=== PATIENT | female | born 1940 | race Caucasian/White ===

== ENCOUNTER 2017-07-24 11:41 | Day surgery (SDC) | payer MEDICARE ==
[2017-07-23 14:45] VITALS: BMI 35.4
--- NOTE | 2017-07-24 16:00 | CT ---
EXAM: ABDOMEN CT WITH CONTRAST PELVIC CT WITH CONTRAST: HISTORY: Abdominal pain. Status post endoscopy. COMPARISON: 06/19/17. TECHNIQUE: Abdomen and pelvic CT are performed with IV contrast. Enteric contrast was not administered. Nam l reformatted images were submitted for interpretation. FINDINGS: ABDOMEN CT: The lung bases are clear. Heart size is within normal limits. No significant pericardial fluid. Stable pneumobilia, presumed to be due to previous surgery at the sphincter of Oddi. Gallbladder is surgically absent. The liver, spleen, pancreas, and adrenal glands have appropriate enhancement. Symmetric enhancement of the kidneys. Bilaterally, no obstructive uropathy. Note is made of a percutaneous LAP band. There is a moderate hiatal hernia. No evidence of bowel ob struction. Evaluation of the alimentary canal is limited by the absence of oral contrast. The ileoc ecal junction is normal. Fecal material in nondistended, nondilated colon. Diverticulosis. No dive rticulitis. No gastrohepatic, retrocrural, or periportal lymphadenopathy. No mesenteric mass, lymphadenopathy, free air, or free fluid. Symmetric attenuation of the psoas muscles. Stable hepatic steatosis. PELVIC CT: Surgically absent uterus. No pelvic mass, lymphadenopathy, free air, or free fluid. There are no lytic or blastic lesions in the osseous structures. IMPRESSION: 1. No evidence of pneumoperitoneum. 2. No evidence of bowel obstruction. 3. Moderate hiatal hernia. Percutaneous gastric LAP band is noted. POS: [facility]
[2017-07-24] MEDS ORDERED: ISOVUE-370 76%-LOCM 1 ML ONE (16:26)
--- NOTE | 2017-07-24 16:43 | OP ---
DATE OF PROCEDURE: 07/24/2017 PROCEDURE: Esophagogastroduodenoscopy. DESCRIPTION OF PROCEDURE: After discussing the potential complications of the esophagogastroduodenoscopy to include risk of bleeding, perforation, infection, reaction to anesthesia and/or discomfort or pain, informed consent was obtained. The patient was then taken to the endoscopy suite and after a timeout was performed, deep sedation was initiated via anesthesia support. The standard gastroscope was then advanced into the esophagus into the stomach into the second portion of the duodenum without difficulty. FINDINGS: Duodenum: Normal mucosa was seen in the duodenal bulb and second portion of the duodenum. There was no evidence of erosions, ulcerations, or mass lesions. Stomach: Normal mucosa was seen in the gastric body, antrum, incisura and pylorus. Two linear erosions were seen extending from the GE junction into the fundus with no overt ulceration or active/recent bleeding seen. This finding was most likely due to passage of the gastroscope/scope trauma, otherwise normal findings throughout the stomach. Retroflexion did not reveal any abnormalities. Esophagus: Normal mucosa was seen in the proximal, mid and distal esophagus. The diaphragmatic pinch was seen at approximately 40 cm past the incisors with the GE junction well seen at approximately 36 cm denoting a 4 cm hiatal hernia. No erosions, ulcerations, or mass lesions were seen. IMPRESSION: 1. A 4 cm hiatal hernia. 2. Two linear erosions were seen in the gastric fundus, most likely the result of scope trauma. 3. The etiology for her abdominal pain was not seen during this examination. RECOMMENDATIONS: 1. Continue with current therapies including pantoprazole b.i.d. 2. Would increase MiraLax 1 capful to twice daily dosing. 3. Continue fiber supplementation with Citrucel b.i.d. 4. Follow up in GI clinic in 4 weeks. 5. Would avoid all NSAIDs. MTDD
[2017-07-24] MEDS ORDERED: Lidocaine 1% PF 5 ML VIAL ONE (18:12)
[2017-07-24] MEDS ORDERED: Propofol 200 MG/20 ML VIAL ONE (18:12)
== END 2017-07-24 16:30 | disposition home or self-care (01) ==
LOC: SDC 11:41
PROVIDERS: ATTEND Internal Medicine
PROC: 0DJ08ZZ Inspection of Upper Intestinal Tract, Via Natural or Artificial Opening Endoscopic (ICD-10-PCS; principal; 2017-07-24)
DX: K44.9 Diaphragmatic hernia without obstruction or gangrene (principal); R10.13 Epigastric pain; E78.5 Hyperlipidemia, unspecified; I11.0 Hypertensive heart disease with heart failure; I50.42 Chronic combined systolic (congestive) and diastolic (congestive) heart failure; J44.9 Chronic obstructive pulmonary disease, unspecified; F41.8 Other specified anxiety disorders; I25.119 Atherosclerotic heart disease of native coronary artery with unspecified angina pectoris; R09.02 Hypoxemia; G47.00 Insomnia, unspecified; I95.1 Orthostatic hypotension; Z79.2 Long term (current) use of antibiotics; Z79.899 Other long term (current) drug therapy; Z88.6 Allergy status to analgesic agent; Z88.5 Allergy status to narcotic agent; Z88.8 Allergy status to other drugs, medicaments and biological substances; Z95.810 Presence of automatic (implantable) cardiac defibrillator; Z90.49 Acquired absence of other specified parts of digestive tract; Z90.710 Acquired absence of both cervix and uterus; Z98.890 Other specified postprocedural states
CPT/HCPCS: 74177; J2001; J2704

== ENCOUNTER 2019-03-24 12:25 | Outpatient (CLI) | payer MEDICARE ==
[~2019-03-24 12:25] MED LIST: Furosemide 40 MG/4 ML VIAL ONE
--- NOTE | 2019-03-24 16:09 | NM ---
NM Renogram HIPN Lasix History: Megaloureter Comparison: CT abdomen and pelvis January 04, 2019 Findings: Exam was performed after intravenous ministration 7.9 mCi technetium 99m MAG3. The split fu nction is 64.5% on the right and 35.5% on the left. The time of one half max is normal bilaterally. No evidence of obstruction. Impression: 1. No evidence of obstructive uropathy. 2. Asymmetric split function of 64.5 % on the right and 35.5 % on the left.
== END 2019-03-24 12:26 | disposition home or self-care (01) ==
LOC: NM 12:25
PROVIDERS: ATTEND Urology
DX: N28.82 Megaloureter (principal)
CPT/HCPCS: 78708; A4641; A9562; J1940

== ENCOUNTER 2019-05-12 08:32 | Outpatient (CLI) | payer MEDICARE ==
--- NOTE | 2019-05-12 14:10 | NM ---
NM Gastric Empty Scan W/Meal History: Nausea with vomiting. Comparison: None. Findings: Planar imaging of the abdomen was obtained after oral administration 1.9 mCi technetium 99m sulfur colloid in egg. There is 19% emptying at 1 hour, 30% emptying at 2 hour, 50% emptying at 3 hour, and 54% emptying at 4 hour. Impression: Delayed gastric emptying.
== END 2019-05-12 08:33 | disposition home or self-care (01) ==
LOC: NM 08:32
PROVIDERS: ATTEND Physician Assistant Medical
DX: R10.11 Right upper quadrant pain (principal); R11.2 Nausea with vomiting, unspecified; R19.4 Change in bowel habit; K30 Functional dyspepsia
CPT/HCPCS: 78264; A9541

== ENCOUNTER 2019-07-13 08:00 | Day surgery (SDC) | payer MEDICARE ==
[2019-07-10 16:13] VITALS: BMI 34.0
[2019-07-13] MEDS ORDERED: Fentanyl 100 MCG/2 ML VIAL ONE (09:53)
[2019-07-13] MEDS ORDERED: Phenylephrine HCL 10 MG/ML VIAL ONE (09:53)
[2019-07-13] MEDS ORDERED: Ondansetron PF 4 MG/2 ML Vial ONE (10:25)
[2019-07-13] MEDS ORDERED: PROPOFOL 200 MG/20 ML VIAL ONE (10:25)
[2019-07-13] MEDS ORDERED: Succinylcholine Chloride 20 MG/ML 10 ml SYRINGE FS ONE (10:25)
[2019-07-13] MEDS ORDERED: PHENYLEPHRINE-NS 100 MCG/ML 10 ML SYRINGE ONE (10:25)
[2019-07-13] MEDS ORDERED: Labetalol HCl 100 MG/20 ML VIAL ONE (10:25)
[2019-07-13] MEDS ORDERED: Lidocaine 1% PF 5 ML VIAL ONE (10:25)
--- NOTE | 2019-07-13 16:10 | OP ---
DATE OF PROCEDURE: 07/13/2019 INDICATIONS FOR PROCEDURE: Nausea, vomiting, and abdominal pain. PROCEDURE PERFORMED: Esophagogastroduodenoscopy with biopsy. DESCRIPTION OF PROCEDURE: After the risks and benefits of the procedure were explained to the patient including risks of bleeding, infection, perforation, reactions to anesthesia, aspiration, and/or pain, informed consent was obtained. The patient was then taken to the endoscopy suite, where general anesthesia was administered with endotracheal tube intubation. Once the patient was sedated and intubated, she was maneuvered into the left lateral decubitus position in preparation for the EGD. Once adequate positioning was obtained, the standard gastroscope was introduced into the mouth with intubation of the esophagus, stomach, and the proximal small intestines with the findings listed below. The patient tolerated the procedure well with no immediate perioperative complications. Upon conclusion of the procedure, the patient was transferred to PACU in satisfactory condition. FINDINGS: Esophagus: Normal-appearing mucosa was seen in the proximal and mid esophagus; however, a 5 mm erosion was seen in the distal esophagus extending up from the gastroesophageal junction consistent with reflux esophagitis. The diaphragmatic pinch was also seen at 45 cm while the gastroesophageal junction was seen at 40 cm denoting a 5 cm hiatal hernia. There were no associated erosions or ulcerations within the hernia sac nor was there any evidence of Puneet ulcers. Otherwise, there was no evidence of ulcerations, mass lesions, or active/recent bleeding. Stomach: Normal-appearing mucosa was seen in the gastric cardia, fundus, and proximal body. However, within the distal body, antrum, and incisura, there was increased mucosal erythema in a diffuse-like pattern without any associated erosions or ulcerations. Biopsies were taken from this region as well as in the proximal stomach for evaluation of possible H pylori and/or histology. A 3 mm white-colored polyp was also seen in the distal gastric body that did not exhibit any increased surrounding erythema or mucosal breakdown. Biopsy was taken of this polyp and completely removed with biopsy forceps. It was placed in a specimen jar for evaluation. Otherwise, a hiatal hernia was seen on gastric retroflexion. There was no evidence of erosions, ulcerations, mass lesions, or active/recent bleeding seen in this portion of the exam. Duodenum: Normal-appearing mucosa was seen in both the duodenal bulb and second portion of the duodenum. There was no evidence of erosions, ulcerations, mass lesions, or active/recent bleeding. IMPRESSION: 1. LA grade A reflux-mediated erosive esophagitis. 2. 5 cm hiatal hernia contributing to #1. 3. Mild diffuse mucosal erythema in the distal stomach concerning for Helicobacter pylori versus inflammatory process. 4. 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 RECOMMENDATIONS: 1. We will follow up on the biopsy results with further management guided by pathology report. 2. Continue the patient on pantoprazole daily for reflux esophagitis. 3. We would continue smaller, more frequent meals throughout the day with liquid meal substitution given evidence of gastroparesis on prior studies that could contribute to nausea and vomiting. 4. We would attempt to minimize any narcotics as it can create constipation and further exacerbate gastroparesis. 5. Antiemetic control as needed with Zofran. Follow up in the GI clinic in 3 weeks for continued evaluation of her chronic nausea and vomiting in light of gastroparesis. Job ID: [id number]
== END 2019-07-13 12:30 | disposition home or self-care (01) ==
LOC: SDC 08:00
PROVIDERS: ATTEND Internal Medicine
PROC: 0DB68ZX Excision of Stomach, Via Natural or Artificial Opening Endoscopic, Diagnostic (ICD-10-PCS; principal; 2019-07-13)
DX: K31.7 Polyp of stomach and duodenum (principal); K31.89 Other diseases of stomach and duodenum; K44.9 Diaphragmatic hernia without obstruction or gangrene; K21.0 Gastro-esophageal reflux disease with esophagitis; K22.10 Ulcer of esophagus without bleeding; Z88.5 Allergy status to narcotic agent; Z88.8 Allergy status to other drugs, medicaments and biological substances
CPT/HCPCS: 88305; 88312; J2001; J2370; J2405; J2704; J3010

== ENCOUNTER 2019-09-08 14:32 | Inpatient (IN) | payer MEDICARE, SELFPAY ==
--- NOTE | 2019-09-08 14:59 | CT ---
CT BRAIN WITHOUT CONTRAST: Date: 10/09/2019 HISTORY: Level I stroke. Aphasia. Bilateral weakness. COMPARISON: 01/10/2019. FINDINGS: Changes of cortical atrophy and chronic small vessel ischemic disease are stable. The ventricular siz e is stable and the basilar cisterns are patent. No evidence of acute infarct, hemorrhage, midline shift, or abnormal extra-axial fluid collections ar e seen. The bony calvarium is intact. There is mild mucosal disease in the paranasal sinuses. IMPRESSION: No CT evidence of acute intracranial process. Discussed over the phone with ER physician, Dr. Cristiano Maldonado, at 1445 hours. CODE CR. POS: OFF
[2019-09-08 15:11] LABS: Hemoglobin 14.7 g/dL (12.0-16.0); Mean Corpuscular HGB CONC 32.9 g/dL (32.0-36.0); Mean Corpuscular Hemoglobin 29.1 pg (27.0-31.0); Mean Corpuscular Volume 88.3 fL (78.0-98.0); Mean Platelet Volume 8.6 fL (7.4-10.4); Platelet Count 319 thou/uL (130-400); RBC Distribution Width 12.8 % (11.5-14.5); Red Blood Cell (RBC) Count 5.05 mill/uL (4.20-5.40); White Blood Cell (WBC) Count 15.4 thou/uL (4.8-10.8)
[2019-09-08 15:14] LABS: INR-International Normal Ratio 1.1; PTT 34.1 SEC (22.9-36.1); Prothrombin Time 13.8 SEC (12.0-14.7)
[2019-09-08 15:22] LABS: Bilirubin Negative (Negative); Blood, Urine Negative (Negative); Clarity Clear (Clear); Glucose, Urine (Dipstick) Normal (Negative); Leukocyte Negative Leu/uL (Negative); Nitrite Negative (Negative); Protein, Urine (Dipstick) 50 mg/dL (Neg-Trace); RBC/HPF 0-3 HPF (0-3); Squamous Epithelial 0-3 HPF (0-3); WBC/HPF 0-3 HPF (0-3)
[2019-09-08 15:24] LABS: ALT (SGPT) 13 U/L (8-55); AST (SGOT) 18 U/L (5-34); Albumin 4.2 g/dL (3.4-4.8); Alkaline Phosphatase 97 U/L (40-110); Anion Gap 17 mmol/L (10-20); BUN (Urea Nitrogen) 21 mg/dL (9.8-20.1); Bilirubin, Total 0.4 mg/dL (0.2-1.2); Calc. Creatinine Clearance 0 mL/min (70-130); Calcium 10.2 mg/dL (7.8-10.44); Carbon Dioxide 28 mmol/L (23-31); Chloride 99 mmol/L (98-107); Estimated GFR-MDRD 60; Globulin 3.2 g/dL (2.4-3.5); Glucose 109 mg/dL (83-110); Potassium 3.5 mmol/L (3.5-5.1); Protein, Total 7.4 g/dL (6.0-8.3); Sodium 140 mmol/L (136-145)
[2019-09-08 15:27] LABS: Band 2 % (5-11); Eosinophils 4 % (0-10); Lymphocytes 33 % (21-51); MDiff Complete? YES; Monocytes 9 % (0-10); Neutrophil 39 % (42-75); Platelet Morphology Comment Appears Adequate; RBC Morphology Normal; Reactive Lymphocytes 11 % (0-10)
[2019-09-08 15:32] LABS: Bacteria/HPF 1+ HPF (None Seen)
--- NOTE | 2019-09-08 15:32 | RAD ---
PORTABLE CHEST 1 VIEW: DATE: 09/08/2019. TIME: 2:55 PM. HISTORY: Altered mental status. FINDINGS: Comparison is made with the exam of 06/07/2019. Left-sided AICD remains in place. The heart size is normal. The lungs are expanded without lobar co nsolidation, pneumothoraces, or pleural effusions. The aorta is tortuous. IMPRESSION: No acute process. POS: OFF
[2019-09-08] MEDS ORDERED: Ondansetron PF 4 MG/2 ML Vial ONE (15:38)
[2019-09-08 16:27] LABS: CKMB 1.7 ng/mL (0-6.6)
[2019-09-08] MEDS ORDERED: Cepastat Lozenges 1 LOZ PO PRN (17:06)
[2019-09-08] MEDS ORDERED: Calcium Carbonate 500 MG ChewTAB PO PRN (17:06)
[2019-09-08] MEDS ORDERED: Ondansetron PF 4 MG/2 ML Vial IVP PRN (17:06)
[2019-09-08] MEDS ORDERED: Ondansetron ODT 4 MG TAB PO PRN (17:06)
[2019-09-08] MEDS ORDERED: Senokot S 8.6-50 MG TAB PO PRN (17:06)
[2019-09-08] MEDS ORDERED: Zolpidem Tartrate 5 MG TAB PO PRN (17:06)
[2019-09-08] MEDS ORDERED: Guaifenesin DM 100-10/5 ML UDCUP PO PRN (17:06)
[2019-09-08] MEDS ORDERED: Bisacodyl 10 MG SUPP PR PRN (17:06)
[2019-09-08] MEDS ORDERED: Sodium Chloride 0.65% Nasal 44 ML BOT EA NARE PRN (17:06)
[2019-09-08] MEDS ORDERED: Labetalol HCl 100 MG/20 ML VIAL SLOW IVP PRN (17:06)
[2019-09-08] MEDS ORDERED: Loperamide HCl 2 MG CAP PO PRN (17:06)
[2019-09-08] MEDS ORDERED: Artificial Tears 18 DROP/0.9 ML EA EYE PRN (17:06)
[2019-09-08] MEDS ORDERED: hydrALAZINE 20 MG/ML VIAL SLOW IVP PRN (17:06)
[2019-09-08] MEDS ORDERED: Nitroglycerin 0.4 MG TAB (25 Tab Bottle) SL PRN (17:06)
[2019-09-08] MEDS ORDERED: Aspirin Chewable 81 MG TAB ONE (17:13)
[2019-09-08] MEDS ORDERED: cefTRIAXone\\ROCEPHIN 1 GM VIAL ONE (17:13)
--- NOTE | 2019-09-08 17:23 | HP ---
PRIMARY CARE PHYSICIAN: Cesilia San MD. REASON FOR ADMISSION: Rule out CVA. HISTORY OF PRESENT ILLNESS: A 78-year-old female, who has underlying history of paroxysmal atrial fibrillation, on chronic anticoagulation therapy, who has recurrent episode of altered mental status since . Today, the patient was unresponsive around 1:30 p.m. The patient was lethargic and she had facial droop on the left side and she was having generalized weakness. There was suspected stroke and that is why the patient was flown to emergency room for evaluation. Per family member, the patient is taking Eliquis regularly, but recently she ran out of her depression medication. The patient was feeling nauseous and episode of diarrhea, but she does not have any urinary tract infection symptoms. When she arrived to emergency room, the patient started talking and she was not having any focal neurological deficit. The patient was up to her normal, but family member was concerned about the recurrent nature of the illness. REVIEW OF SYSTEMS: CONSTITUTIONAL: Negative for weight loss or gain, ability to conduct usual activities. SKIN: Negative for rash, itching. EYES: Negative for double vision, pain. ENT/MOUTH: Negative for nose bleeding, neck stiffness, pain, tenderness. CARDIOVASCULAR: Negative for palpitations, dyspnea on exertion, orthopnea. RESPIRATORY: Negative for shortness of breath, wheezing, cough, hemoptysis, fever or night sweats. GASTROINTESTINAL: Negative for poor appetite, abdominal pain, heartburn, nausea, vomiting, constipation, or diarrhea. GENITOURINARY: Negative for urgency, frequency, dysuria, nocturia. MUSCULOSKELETAL: Negative for pain, swelling. NEUROLOGIC/PSYCHIATRIC: Negative for anxiety, depression. ALLERGY/IMMUNOLOGIC: Negative for skin rash, bleeding tendency. Please see my HPI for pertinent positives and negatives. All other review of systems reviewed and negative, except as mentioned in the HPI. PAST MEDICAL HISTORY: Chronic systolic and diastolic congestive heart failure, dysautonomic syndrome, hypertension, ischemic cardiomyopathy, coronary artery disease, COPD, chronic atrial fibrillation, GERD, chronic anticoagulation. PAST PSYCHIATRIC HISTORY: Anxiety and depression. PAST SURGICAL HISTORY: Exploratory laparotomy, AICD implantation, cholecystectomy, hysterectomy, pacemaker placement. FAMILY HISTORY: No strong family history of premature coronary artery disease, stroke, or cancer. ALLERGIES: VICODIN, VAL INHIBITOR. SOCIAL HISTORY: The patient denies any smoking, alcohol, or illicit drug abuse. She is , and she lives with her daughter. EMERGENCY ROOM COURSE: The patient is treated with Rocephin and Zofran in the emergency room. CURRENT HOME MEDICATIONS: 1. Vitamin D3 of 1000 units p.o. daily. 2. Digoxin 125 mcg daily. 3. Metoprolol 12.5 mg p.o. daily. 4. Seroquel 50 mg at bedtime. 5. Effexor XR 150 mg p.o. b.i.d. 6. Eliquis 2.5 mg b.i.d. 7. Klonopin 0.5 mg p.o. at bedtime. 8. Xanax 0.25 mg t.i.d. p.r.n. 9. ProAmatine 5 mg t.i.d. p.r.n. 10. Demadex 10 mg p.o. daily p.r.n. PHYSICAL EXAMINATION: VITAL SIGNS: On arrival, blood pressure 155/108, pulse 84, respiratory rate 15, temperature 97.3, saturation 98% on room air, weight 95.6 kg. GENERAL: The patient is currently alert, oriented, no acute distress. HEENT: Head; normocephalic, atraumatic. Eyes; pupils round, reactive to light. Extraocular muscles intact. ENT; oropharynx within normal limit. Moist mucous membranes. No oral lesion. No pharyngeal erythema. No exudate. NECK: Supple. No JVD. No meningeal signs of irritation. LUNGS: Clear to auscultation without any rhonchi or rales. CARDIAC: S1 and S2 regular. No murmur. No gallop. No rub. ABDOMEN: Soft. Bowel sounds present. Nontender, nondistended. No organomegaly. No mass. EXTREMITIES: No edema. Good distal pulsation. NEUROLOGIC: The patient is alert and oriented x3. Cranial nerves 2 through 12 intact. Motor and sensation within normal limits. Speech normal. No cerebellar sign. Plantar bilateral flexor. SIGNIFICANT LABORATORY DATA: CBC; WBC 15.4, hemoglobin 14.7, platelets 319 with bandemia. INR 1.1. BMP; sodium 140, potassium 3.5, chloride 99, carbon dioxide 28, BUN 21, creatinine 0.91, glucose 109, calcium 10.2. LFT; AST 18, ALT 13, alkaline phosphatase 97, albumin 4.2. CK 71, CK-MB 1.7, troponin 0.034. TSH 1.29. Lactic acid 1.6. Urinalysis suggestive of UTI. ASSESSMENT AND PLAN: 1. Acute altered mental status, facial droop, weakness, aphasia, suspected for stroke. Currently, CT brain is negative for any acute process, and the patient is back to normal. The patient has AICD, so unable to obtain MRI, but we will obtain echocardiography and carotid Doppler, and we will consult Neurology. Neuro check q.4 hourly. We will resume the patient's all her selective blood pressure medication. 2. Urinary tract infection. We will continue with Rocephin 1 g q.24 hours and follow up on culture result. 3. Ischemic cardiomyopathy with the chronic systolic and diastolic heart failure, currently euvolemic. Continue the patient's home medication including digoxin, metoprolol. 4. Anxiety and depression. Continue Seroquel, Effexor XR and Klonopin as per home dosage. 5. Chronic atrial fibrillation, rate controlled. Continue digoxin, metoprolol, and Eliquis. 6. Deep venous thrombosis prophylaxis. The patient is already on Eliquis therapy. GI prophylaxis, Pepcid 20 mg p.o. b.i.d. Elevated troponin, we will do serial cardiac enzyme x3 to rule out acute coronary syndrome. 7. Disposition plan. Based on clinical course, we are expecting the patient's stay 24 hours. Plan of care discussed with the patient and family member at bedside in the emergency room. Job ID: [id number]
[2019-09-08 18:30] LABS: Troponin I 0.018 ng/mL (< 0.028)
[2019-09-08 20:16] VITALS: BMI 34.2
[2019-09-08] MEDS: Digoxin 0.125 MG TAB PO SCH (21:22)
[2019-09-08] MEDS: Famotidine 20 MG TAB PO SCH (21:22)
[2019-09-08] MEDS: Apixaban 5 MG TAB PO SCH (21:22)
[2019-09-08] MEDS: Atorvastatin Calcium 40 MG TAB PO SCH (21:22)
[2019-09-08] MEDS: Venlafaxine HCl XR 150 MG CAP PO SCH (21:22)
[2019-09-08] MEDS: clonazePAM 0.5 MG TAB PO SCH (21:22)
[2019-09-08 21:23] LABS: Troponin I 0.036 ng/mL (< 0.028)
[2019-09-09 05:08] LABS: #Basophils 0.1 thou/uL (0.0-0.2); #Eosinphils 0.6 thou/uL (0.0-0.7); #Lymphocytes 4.3 thou/uL (1.20-3.40); #Neutrophils 5.3 thou/uL (1.40-6.50); %Lymphocytes 38.3 % (21.0-51.0); %Monocytes 8.5 % (0.0-10.0); %Neutrophils 47.3 % (42.0-75.0); Mean Corpuscular Hemoglobin 29.3 pg (27.0-31.0); Mean Corpuscular Volume 88.8 fL (78.0-98.0); Mean Platelet Volume 8.8 fL (7.4-10.4); Platelet Count 271 thou/uL (130-400); RBC Distribution Width 12.8 % (11.5-14.5); Red Blood Cell (RBC) Count 4.79 mill/uL (4.20-5.40); White Blood Cell (WBC) Count 11.1 thou/uL (4.8-10.8)
[2019-09-09 05:34] LABS: Anion Gap 12 mmol/L (10-20); BUN (Urea Nitrogen) 19 mg/dL (9.8-20.1); Calc. Creatinine Clearance 88 mL/min (70-130); Calcium 9.6 mg/dL (7.8-10.44); Carbon Dioxide 30 mmol/L (23-31); Cardiac Risk 5.1 (Less than 4.5); Chloride 100 mmol/L (98-107); Cholesterol 195 mg/dl (< 200 Desired); Estimated GFR-MDRD 67; Glucose 113 mg/dL (83-110); HDL Cholesterol 38 mg/dL (>60 Neg Risk); LDL Cholesterol, Calculated 115 mg/dL; Potassium 3.6 mmol/L (3.5-5.1); Sodium 138 mmol/L (136-145); Triglycerides 211 mg/dL (Less than 150)
[2019-09-09] MEDS: Apixaban 5 MG TAB PO SCH ×2 (07:52→20:30)
[2019-09-09] MEDS: Aspirin 81 mg Enteric Coated Tablet PO SCH (07:52)
[2019-09-09] MEDS: Famotidine 20 MG TAB PO SCH ×2 (07:53→20:31)
[2019-09-09] MEDS: Venlafaxine HCl XR 150 MG CAP PO SCH ×2 (07:53→20:32)
[2019-09-09] MEDS: Metoprolol Tartrate 25 MG TAB PO SCH (07:54)
--- NOTE | 2019-09-09 09:56 | ULT ---
CAROTID DOPPLER ULTRASOUND: HISTORY: Transient ischemic attack. COMPARISON: None. TECHNIQUE: Real-time pedroza-scale and color Doppler with spectral analysis of the extracranial carotid and vertebr al arteries was performed. FINDINGS: No significant calcific plaque of the carotid vessels. Antegrade flow of both vertebral arteries. No elevated peak systolic velocities within the internal carotid arteries. IMPRESSION: No hemodynamically significant stenosis. POS: CET
--- NOTE | 2019-09-09 11:16 | PRG ---
DATE OF SERVICE: 09/09/2019 SUBJECTIVE: The patient is seen and examined at the bedside. There are two daughters present in the room during this visit. The patient complains about some nausea and dizziness. OBJECTIVE: VITAL SIGNS: Blood pressure is 150/80, pulse is 88, respiratory rate is 16, temperature is 97.5, and O2 saturation 94% on room air. HEENT: Head is atraumatic and normocephalic. Eyes are PERRLA. Sclerae are nonicteric. Conjunctivae are pinkish. Oral mucosa is moist. NECK: Supple. LUNGS: Clear. HEART: S1 and S2 normal. No S3. No S4. ABDOMEN: Soft, nontender, and nondistended. EXTREMITIES: No clubbing, cyanosis, or edema. NEUROLOGICAL: She follow my commands. She moves all 4 extremities. She shows significant upper and lower extremity generalized weakness. She is alert and oriented x4. LABORATORY DATA: Labs showed white count of 11.1 and the rest of CBC within normal limits. Chemistry within normal limits except for glucose, which is 113, calcium 9.6. Triglycerides 211, cholesterol 195, LDL 115, and HDL 38. Microbiology; two blood cultures are negative. Carotid Doppler study negative for any significant stenosis. IMPRESSION AND PLAN: 1. Acute altered mental status with facial droop, weakness, and aphasia. Suspect seizures. The patient is not able to get MRI because of incompatibility with her pacemaker/automatic implantable cardioverter-defibrillator. Neurology consultation is pending. 2. Urinary tract infection, on Rocephin. Cultures are pending. 3. Ischemic cardiomyopathy with systolic and diastolic heart failure, chronic, stable. 4. Anxiety and depression. The patient is back on her Effexor. Apparently, she ran out of Effexor for 1 week and she started feeling significantly worse. She started crying. 5. Chronic atrial fibrillation with rate controlled. 6. Generalized weakness of unclear etiology, it could be related to recurrent seizures or medications. We will have Dr. Rankin, Neurology Mechanic Driver, to evaluate her today. Job ID: [id number]
[2019-09-09] MEDS: Acetaminophen 325 MG TAB PO PRN ×2 (13:00→17:14)
[2019-09-09] MEDS: ALPRAZolam 0.25 MG TAB PO PRN (13:04)
[2019-09-09] MEDS ORDERED: cefTRIAXone\\ROCEPHIN 1 GM in Sodium Chloride 0.9% 100 ML IVPB SCH (17:00)
[2019-09-09] MEDS: clonazePAM 0.5 MG TAB PO SCH (20:30)
[2019-09-09] MEDS: Digoxin 0.125 MG TAB PO SCH (20:31)
[2019-09-09] MEDS: Atorvastatin Calcium 40 MG TAB PO SCH (20:32)
[2019-09-10] MEDS: Apixaban 5 MG TAB PO SCH ×2 (08:35→20:28)
[2019-09-10] MEDS: Aspirin 81 mg Enteric Coated Tablet PO SCH (08:35)
[2019-09-10] MEDS: Famotidine 20 MG TAB PO SCH ×2 (08:36→20:29)
[2019-09-10] MEDS: Metoprolol Tartrate 25 MG TAB PO SCH (08:36)
[2019-09-10] MEDS: Venlafaxine HCl XR 150 MG CAP PO SCH ×2 (08:36→20:30)
--- NOTE | 2019-09-10 09:50 | EEG ---
Referring Physician: PAOLA EEG # [id number] TEST TYPE: ROUTINE PORTABLE INPATIENT REPORT: AN EEG USING THE INTERNATIONAL TEN-TWENTY SYSTEM OF ELECTRODE PLACEMENT WAS PERFORMED. The waking background is an 8-9 hertz alpha frequency. The patient remained awake throughout the study. There is some frontal EMG artifact present. Photic stimulation was unremarkable. No epileptiform features were present. IMPRESSION: THIS IS A NORMAL AWAKE EEG. Tractor Crane Engineer: STEVENSON Sand Plant Attendant: EEG.SAURABH QUINN
--- NOTE | 2019-09-10 13:06 | PRG ---
DATE OF SERVICE: 09/10/2019 SUBJECTIVE: The patient is seen and examined at the bedside. She had positive orthostatic changes when she sat up from a lying flat position. She was not able to stand up long enough to have the blood pressure checked properly. She feels slightly stronger. OBJECTIVE: VITAL SIGNS: Blood pressure is 152/77, pulse is 82, temperature is 98.1, respiratory rate is 18, O2 saturation is 92% on room air. HEENT: Head is atraumatic, normocephalic. Eyes are PERRLA. Sclerae are nonicteric. Oral mucosa is moist. NECK: Supple. LUNGS: Clear. HEART: S1, S2 normal. No S3. No S4. No any murmur. ABDOMEN: Soft, nontender, nondistended. EXTREMITIES: No clubbing, cyanosis, or edema. NEUROLOGICAL: She is alert and oriented x4. There is no any motor deficits, but she shows significant generalized weakness in upper and lower extremities, although today weakness is somewhat better and she follows my commands. LABORATORY DATA: None today. Cortisol came back 6.30. Echocardiogram came back with LVEF estimated at 30% to 35%. Carotid Doppler did not show any significant atherosclerotic disease. IMPRESSION: 1. Orthostasis, most likely causing her episodes of altered mental status. The patient was seen through Telemedicine by Dr. Rankin, who is coming to evaluate her personally today. He thinks that all those episodes are related to her orthostatic hypotension. 2. Urinary tract infection. I suspect that this was over diagnosed and I am going to stop her Rocephin and we do not have urine cultures. 3. Ischemic cardiomyopathy with systolic and diastolic heart failure, chronic, stable. Neurologist ask a vacuum cleaner repairer to see the patient for stabilization of her cardiac status. 4. Anxiety and depression. 5. Chronic atrial fibrillation with rate controlled. 6. Generalized weakness, most likely related to her labile hypertension and episodes of orthostasis. PLAN: Plan is to set her up for [facility]. I am waiting for vacuum cleaner repairer to evaluate her and then Dr. Rankin to complete his neurological evaluation. I am going to stop her Rocephin and continue PT and OT. Job ID: [id number]
--- NOTE | 2019-09-10 14:18 | CON ---
DATE OF CONSULTATION: 09/10/2019 REASON FOR CONSULTATION: 1. History of nonischemic cardiomyopathy. 2. Orthostatic hypotension. 3. Autonomic insufficiency. 4. Episodes of unresponsiveness. 5. Previous pacemaker defibrillator. HISTORY OF PRESENT ILLNESS: Please see admission note for full details. Briefly, this is a very complicated patient, a very pleasant 78-year-old woman, with the above listed problems. The patient was brought to the hospital on an emergency basis, being unresponsive. The patient states she could hear people talking, but could not respond. Of note, I talked with the patient's daughter. She said the initial first responders indicate they could not get a blood pressure, but then they got automatic blood pressure cuff on her arm and was 120/80. There is no documentation of low blood pressures initially. The patient ultimately recovered. The patient has been hypertensive here. She had one episode of hypotension at midnight last night, otherwise has been hypertensive here. The patient states she got volume depleted and dehydrated, had to go to the hospital and get intravenous fluid. However, on Saturday, she took a half of torsemide, had a good response to that. The patient states she is going to go and see her psychiatrist the day of this admission, but had the above listed episode, she is actually transported by helicopter here. PAST HISTORY: 1. She has history of nonischemic cardiomyopathy. She underwent cardiac catheterization by Dr. Bishop in [place]. It was noted that she is actually thought to be volume depleted with a low pulmonary capillary wedge pressure, indicating hypovolemia with decreased cardiac output. Due to this, he decided to hold any Lasix. 2. She also was diagnosed with severe autonomic insufficiency on testing and she said it was done in [place]. 3. The patient has been found to have short episodes of paroxysmal atrial fibrillation and has been placed on apixaban. MEDICATIONS AT HOME: 1. The patient states she was taking Effexor, but she ran out of that. 2. Apixaban 2.5 mg twice a day. 3. Digoxin 0.125 mg a day. 4. Midodrine 2.5 mg if needed, but she is rarely taking that. 5. Torsemide 10 mg if needed. 6. Metoprolol succinate 25 mg tablet half a pill a day. 7. Potassium if needed. 8. Simvastatin. 9. Pantoprazole. ALLERGIES: 1. SHE LISTS VAL INHIBITORS AN ALLERGY, BUT SHE SAID IT IS ACTUALLY A SIDE EFFECT, SHE COUGHED. 2. INTRAVENOUS POTASSIUM CAUSED A SEVERE PROBLEM FOR HER SHE SAID. REVIEW OF SYSTEMS: CONSTITUTIONAL: Positive for weakness, fatigue, and vision changes intermittently and also has episodes she cannot find the right words to say and has episodes where she feels like she is unresponsive. PULMONARY: No cough or wheezing. CARDIAC: No chest pain. GASTROINTESTINAL: Recent diarrhea. SKIN: No rashes. NEUROLOGIC: No unilateral weakness or numbness. PSYCHIATRIC: No unusual depression or anxiety. HEMATOLOGIC: No unusual bruising. GENITOURINARY: No burning with urination. PHYSICAL EXAMINATION: GENERAL: This is a pleasant patient. She is 5 feet 6 inches tall, 212 pounds, BMI is reported at 34, blood pressure has been high at 152/77, pulse 82 and regular. EYES: Sclerae nonicteric. MOUTH: Mucous membranes moist. NECK: Supple. No lymphadenopathy. LUNGS: Clear. CARDIAC: Normal S1 and normal S2. There is no murmur, rub, or gallop. ABDOMEN: Soft and nontender. She is obese. EXTREMITIES: No clubbing or cyanosis. There is no significant edema. SKIN: Warm and dry. PERTINENT LABORATORY DATA: Her recent BNP was not elevated at 49.4. Most recent potassium is 3.6. Chest x-ray shows cardiomegaly with no pulmonary vascular congestion on x-ray. Echocardiogram revealed ejection fraction lower than it had been recently as 30% to 35%. Pacemaker defibrillator was interrogated. All the leads were capturing normally, approximately 1.6 years left on the battery. No definite atrial fibrillation seen on the monitor. There was some episodes of 1:1 atrial tachycardia. Her defibrillator was not MRI compatible. The episodes of atrial tach appear to be just a few seconds at a time. ASSESSMENT: 1. Nonischemic cardiomyopathy with worsening ejection fraction. 2. History of autonomic insufficiency, complicating treatment. 3. Previous pacemaker defibrillator, biventricular, functioning normally. 4. History of orthostatic hypotension. 5. Hypertensive now. 6. Recent probable volume depletion with diarrhea and one dose of torsemide. At this time, the patient from a cardiac standpoint, is not really doing well. Her ejection fraction is decreasing. Unfortunately, she had to be off angiotensin-receptor blockers and VAL inhibitors in the past. She is not really allergic to VAL inhibitor, she had a cough. She is also on a very low-dose beta ki. From a cardiac standpoint, her prognosis is poor. She cannot be placed on heart failure medicines with likely progressive worsening of her left ventricular function. However, some of her problems may be related to orthostatic hypotension. It appears that she gets volume depleted, she gets very hypotensive. PLAN: 1. We will start low-dose Entresto. 2. Avoid Midodrine. 3. Avoid diuretic unless absolutely necessary. 4. Clonidine if needed for hypertension. 5. Probably need to be here until at least tomorrow one more day to make sure things were smoothed out before being released home. Long-term prognosis is guarded. Job ID: [id number]
--- NOTE | 2019-09-10 15:23 | PQF ---
MASSIEL CHENG ZBIGNIEW A MD [phone] [facility] [id number] CLINICAL DOCUMENTATION IMPROVEMENT CLARIFICATION FORM: ICD-10 Updated PLEASE DO AN ADDENDUM TO THE PROGRESS NOTE WITH ANY DOCUMENTATION UPDATES OR ADDITIONS AND CARRY THROUGH TO DC SUMMARY. THANK YOU. DATE: 09/10/2019 ATTN:DR. Juan GUEVARA Please exercise your independent, professional judgment in responding to the clarification form. Clinical indicators are provided on the bottom of this form for your review. Please check appropriate box(s): [ x ] Encephalopathy: Type: [ x ] Acute [ ] Subacute [ ] Chronic Etiology: [ ] Hypertensive [ ] Metabolic [ ] Toxic [ ] Hepatic with Coma [ ] Hepatic w/o Coma [ ] Hypoxic [ ] Septic [ ] Wernickes [ ] Drug induced: [ ] Unspecified [ ] in the setting of underlying dementia [ ] Other (please specify) [ ] Other diagnosis [ ] Unable to determine In addition, please specify: Present on Admission (POA): [ ] Yes [ ] No [ ] Unable to determine For continuity of documentation, please document condition throughout progress notes and discharge summary. Thank You. CLINICAL INDICATORS - SIGNS / SYMPTOMS / LABS / RESULTS AND LOCATION IN EMR 09/08 ED REPORT: PT PRESENTS FOR EVALUATION OF MENTAL STATUS CHANGE, SIMILAR EPISODES SINCE [place] EMS REPORTS FACIAL DROOP TO LEFT SIDE. ED PHYSICAL FINAL DX: TIA R/O , CVA 09/08 H&P ( [place]) ASSESSMENT / PLAN: 1). ACUTE ALTERED MENTAL STATUS, FACIAL DROOP, WEAKNESS, APHASIA, SUSPECTED FOR STROKE. CURRENTLY, CT BRAIN IS NEGATIVE FOR ANY ACUTE PROCESS AND THE PT IS BACK TO NORMAL. CONSULT NEUROLOGY. NEURO CHECKS Q 4 HOURS. 09/09 PN ([place]) IMPRESSION AND PLAN: 1). ACUTE ALTERED MENTAL STATUS WITH FACIAL DROOP, WEAKNESS, AND APHASIA. SUSPECT SEIZURES. NEUROLOGY CONSULT IS PENDING. 09/10 PN ([place]) IMPRESSION: 1). ORTHOSTASIS, MOST LIKELY CAUSING HER EPISODES OF ALTERED MENTAL STATUS. THE PATIENT WAS SEEN THROUGH TELEMEDICINE BY DR. DEVRIES, WHO IS COMING TO EVALUATED HER PERSONALLY TODAY. HE THINKS THAT ALL THOSE EPISODES ARE RELATED TO HER ORTHOSTATIC HYPOTENSION. RISK: ADVANCED AGE(78), ORTHOSTATIC HYPOTENSION, HYPERTENSION (PN/PAOLA) 09/10 TREATMENTS: NEUROLOGY CONSULT ORDERED (09/08) NEURO CHECKS Q 4 HOURS (09/08) THANK YOU! SILVANA (This form is maintained as a part of the permanent medical record) 2014 [employer]. All Rights Reserved [email or web address] [phone] [email or web address]
[2019-09-10] MEDS: ALPRAZolam 0.25 MG TAB PO PRN (16:15)
[2019-09-10] MEDS: Atorvastatin Calcium 40 MG TAB PO SCH (20:29)
[2019-09-10] MEDS: clonazePAM 0.5 MG TAB PO SCH (20:30)
[2019-09-10] MEDS: Digoxin 0.125 MG TAB PO SCH (20:30)
--- NOTE | 2019-09-11 00:30 | CON ---
DATE OF CONSULTATION: 09/10/2019 CONSULTING PHYSICIAN: Hospitalist Service. IMPRESSION: 1. Autonomic instability with history of syncopal episodes. 2. Anxiety/depression issues with secondary panic attack. PLAN: 1. Blood pressure management as per Dr. Kruger's recommendations. 2. Continue Effexor and Xanax for the time being. 3. Monitor clinical course. HISTORY OF PRESENT ILLNESS: Ms. Ward is a 78-year-old woman who has a history of autonomic instability. She reports that it has been quite a barrientos to get things stabilize. She has had numerous episodes of syncope and other times episodes of hypertension. She has been recently evaluated by Dr. Kruger and some changes in her regimen were made. Around Jeffrey time, she started having increased anxiety. She is seeing a psychiatrist out of [place] and was prescribed Effexor and Xanax. She was unable to make it to her psychiatrist visit and had run out of her Effexor. She started having increased anxiety. She would feel anxious and short of breath. Her daughter noted she seemed to have pauses where she would have an appearance of a blank stare and some spasm looking hand movements. She admits that she has been dealing with quite a bit. She lost her last August. His birthday is also in August. All these anniversaries of grief came to bear just prior to the symptoms escalating. She otherwise had a workup since admission including a CT scan of the brain, carotid ultrasound and EEG, all were unremarkable. Her lab work was also unremarkable. PAST MEDICAL HISTORY: Atrial fibrillation with anticoagulation with Eliquis, pacemaker implantation, panic disorder or orthostatic hypotension. ALLERGIES: 1. VAL INHIBITORS. 2. HYDROCODONE. 3. NONSTEROIDALS. 4. POTASSIUM. 5. VICODIN. SOCIAL HISTORY: No tobacco or alcohol use. FAMILY HISTORY: Noncontributory. REVIEW OF SYSTEMS: Ten-system review of systems is otherwise negative. PHYSICAL EXAMINATION: GENERAL: She is a well-nourished elderly lady, sitting up in bed, appearing slightly anxious. HEENT: Pupils are equal and reactive. Conjunctivae clear. Oropharynx clear. Cranium, normocephalic and atraumatic. NECK: Supple. No lymphadenopathy. EXTREMITIES: No cyanosis, clubbing, or edema. NEUROLOGIC: She was alert and cooperative. Her speech is fluent and clear. Cranial nerves are intact throughout. 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 She had some tremulousness in her hands on postural extension. Sensation was intact to touch. Gait was not tested. IMAGING STUDIES: EKG shows a paced rhythm. Reportedly, there has been some atrial tachycardia as well. SUMMARY: This elderly lady has two ongoing issues. She has autonomic instability, which has been causing blood pressure variability and syncopal episodes. She also has had some ongoing anxiety and depression, which I think is contributing to some panic attacks. I do not think she is having any epileptic type activity based on her story to be available to have any further questions. Job ID: [id number]
[2019-09-11 02:00] VITALS: TEMP 97.7
[2019-09-11 07:38] VITALS: BP 135/85
[2019-09-11] MEDS ORDERED: Apixaban 5 MG TAB PO SCH (09:00)
[2019-09-11] MEDS: Venlafaxine HCl XR 150 MG CAP PO SCH (09:04)
[2019-09-11] MEDS: Famotidine 20 MG TAB PO SCH (09:04)
--- NOTE | 2019-09-11 12:31 | DIS ---
DATE OF ADMISSION: 09/08/2019 DATE OF DISCHARGE: 09/11/2019 DIAGNOSES AT THE TIME OF DISCHARGE: 1. Orthostatic hypotension presenting as episodes of altered mental status. 2. Urinary tract infection was ruled out. 3. Anxiety and depression. 4. Cardiomyopathy with mixed picture of systolic and diastolic heart failure. 5. Chronic atrial fibrillation with rate controlled. 6. Generalized weakness. 7. Autonomic insufficiency. 8. Previous pacemaker/defibrillator. CONSULTANTS: 1. Dr. Prabhjot Rankin, Neurology Service. 2. Dr. Gabriel Kruger, Cardiology Service. HOSPITAL COURSE: The patient is a 78-year-old female with history of paroxysmal atrial fibrillation, on chronic anticoagulation therapy, who has recurrent episodes of altered mental status since . She became unresponsive prior to this hospitalization. She was lethargic with some facial droop on the left side and generalized weakness. She was evaluated in the emergency room. The CVA was suspected, and she got admitted to the hospital for further management. She had some nausea and episodes of diarrhea. She did not have any symptoms of UTI. Her examination in the emergency room was nonfocal. Lab work at the time of ER visit showed white count of 15.4, hemoglobin 14.7, platelet count 319. Sodium of 140, potassium 3.5, chloride 99, CO2 of 28, BUN 21, creatinine 0.91. LFTs were within normal limits. Lactic acid 1.6. Urinalysis was suggestive of UTI. A CT of the brain was negative for any acute process. MRI was not done because of presence of AICD and incompatibility. She was placed on Rocephin for possible UTI, and she was continued on digoxin and metoprolol for her cardiomyopathy. She had significant weakness all over her body, but mainly in both lower extremities. She received PT and OT during this hospitalization. She was seen by Dr. Rankin, who read EEG as normal, and he felt that those episodes are related to her orthostasis and hypotension related to that. Her followup echocardiogram showed LVEF estimated at 30% to 35%, so residence life coordinator was consulted, and Dr. Kruger started her on Entresto. He recommended to avoid diuretics or only as needed, and he recommended to discontinue midodrine. Her generalized weakness improved with PT and OT. She was able to participate with the sessions of PT and OT. Her blood pressure today is 135/85, pulse is 79, temperature is 97.7, respirations 15, O2 saturation is 97% on room air. She is seen and examined before she is discharged. Blood cultures came back negative, and urine culture came back negative. Antibiotic for her possible UTI was stopped. Since she seems to be doing significantly better and she needs more PT and OT, she is arranged for transfer to longterm facility in [place], where she is going to get her PT and OT. She is going to follow up with Dr. Kruger after she is discharged from the longterm facility. DIET: She is going to stay on heart-healthy diet. ACTIVITIES: As tolerated. MEDICATIONS AT THE TIME OF DISCHARGE: 1. Seroquel 25 mg at bedtime. 2. Effexor XR 150 mg twice a day. 3. Sucralfate 1 g 4 times a day. 4. Digoxin 125 mcg at bedtime. 5. Torsemide 10 mg p.r.n. as needed. 6. Zocor 40 mg at bedtime. 7. Pantoprazole 1 tablet twice a day. 8. Potassium chloride 10 mEq with torsemide. 9. Metoprolol tartrate twice a day. 10. Apixaban 2.5 mg twice a day. 11. Clonazepam at bedtime. 12. Tylenol p.r.n. 13. Alprazolam 0.25 mg 3 times a day p.r.n. as needed. 14. Entresto 24/26 one tablet twice a day. 15. Vitamin D3 of 1000 units once a day. 16. Artificial Tears. Job ID: [id number]
== END 2019-09-11 13:18 | DRG 312 ==
LOC: ERS 14:32 → OBSVTOIN 19:15 → 2SE 19:15
PROVIDERS: ADMIT Internal Medicine; ATTEND Internal Medicine
DX: I95.1 Orthostatic hypotension (principal); I50.42 Chronic combined systolic (congestive) and diastolic (congestive) heart failure; I48.20 Chronic atrial fibrillation, unspecified; G93.40 Encephalopathy, unspecified; I42.9 Cardiomyopathy, unspecified; I25.10 Atherosclerotic heart disease of native coronary artery without angina pectoris; J44.9 Chronic obstructive pulmonary disease, unspecified; K21.9 Gastro-esophageal reflux disease without esophagitis; Z88.5 Allergy status to narcotic agent; Z88.8 Allergy status to other drugs, medicaments and biological substances; Z95.810 Presence of automatic (implantable) cardiac defibrillator; F32.9 Major depressive disorder, single episode, unspecified; F41.0 Panic disorder [episodic paroxysmal anxiety]; I10 Essential (primary) hypertension; Z79.01 Long term (current) use of anticoagulants
CPT/HCPCS: 36415; 36416; 51701; 70450; 71045; 80048; 80053; 80061; 81003; 81015; 82533; 82550; 82553; 83605; 84443; 84484; 85025; 85610; 85730; 87040; 87086; 87149; 93005; 93306; 93880; 95816; 95819; 96365; 96375; A4353; J0696; J2405; J3490

== ENCOUNTER 2020-02-02 09:24 | Outpatient (CLI) | payer MEDICARE ==
[~2020-02-02 09:24] MED LIST changes: -Furosemide 40 MG/4 ML VIAL ONE; +Iopamidol-370 76% 500 ML 1 ML ONE
--- NOTE | 2020-02-02 13:53 | CT ---
CT ABDOMEN WITH AND WITHOUT IV CONTRAST: 02/02/20 HISTORY: 79-year-old female with pancreatitis. Nausea with vomiting, unspecified. Weight loss. COMPARISON: 07/24/17, 01/04/19. FINDINGS: Changes of gastric banding procedure and cholecystectomy are again seen. Intrabiliary air is redemons trated. No hepatic masses identified. The spleen, pancreas, and adrenal glands are normal. No pancrea tic calcifications are abnormal pancreatic ductal dilatation is seen. No peripancreatic inflammatory changes or fluid collections are identified. Bilateral renal cysts are again seen. No free air, free fluid or lymphadenopathy is seen in the abdomen. There are degenerative changes in the spine. There are vascular calcifications without evidence of aneurysmal dilatation of the abdomin al aorta. No portal splenic thrombosis is identified. IMPRESSION: No evidence of pancreatitis or its complications. POS: [facility]
== END 2020-02-02 09:25 | disposition home or self-care (01) ==
LOC: BICCT 09:24
PROVIDERS: ATTEND Physician Assistant Medical
DX: K85.90 Acute pancreatitis without necrosis or infection, unspecified (principal); R11.2 Nausea with vomiting, unspecified; R63.4 Abnormal weight loss
CPT/HCPCS: 74170; 82565; Q9967

== ENCOUNTER 2020-07-16 12:36 | Inpatient (IN) | payer MEDICARE ==
--- NOTE | 2020-07-16 12:48 | CT ---
CT Brain WO Con: 07/16/2020 12:32 PM CLINICAL HISTORY: level 1 stroke alert with left-sided deficits and facial droop. IMAGING TECHNIQUE: Multiple CT images were obtained of the brain without IV contrast. COMPARISON: Prior CT the brain dated September 08, 2019 FINDINGS: BRAIN: Evidence of acute infarct: None. Evidence of chronic ischemic change:There is mild chronic small vessel white matter ischemic change. There is a small suspected remote lacunar infarct involving the left thalamus. Evidence of intracranial hemorrhage: None. Evidence of brain volume loss:None. Evidence of midline shift: Third ventricle and septum pellucidum are midline. Ventricles: Normal. No hydrocephalus. SKULL: Intact. VISUALIZED PARANASAL SINUSES: Clear. MASTOID AIR CELLS: Clear. EXTRACRANIAL SOFT TISSUES: Normal. IMPRESSION: No acute intracranial abnormality. Findings called to Dr. Wiley at 12:45 PM on July 16, 2020
--- NOTE | 2020-07-16 13:07 | CT ---
CTA of the head with IV contrast and 3-D reformatted imaging. CTA of the neck with IV contrast and 3-D reformatted imaging. INDICATION: Left-sided deficits with facial droop and a aphasia COMPARISON: None FINDINGS: CTA OF THE HEAD WITH CONTRAST: CTA OF THE BRAIN: Right ICA: Patent. Right MCA: Patent. Right ERICA: Patent. ACOM: Patent. Left ICA: Patent. Left MCA: Patent. Left ERICA: Patent. PCOMs: Patent. Vertebral arteries: Patent. Basilar Artery: Patent. multiple drum sander: Patent. Incidentals: None. CTA OF THE NECK WITH CONTRAST: Right CCA: Patent. Right ICA: Patent. Right Subclavian: Patent. Right Vertebral Artery: Patent. Left CCA: Resolved] artery. Patent. Left ICA: Patent. Left Subclavian: Patent. Left Vertebral Artery: Patent. Aerodigestive tract: Clear. Parotids/Submandibular/Thyroid glands: Small calcifications within the thyroid gland. Submandibular and parotid glands are normal appearing. Lymph nodes: No pathologically enlarged lymph nodes. Lung Apices: There is bilateral perihilar interstitial and airspace opacities may reflect edema. The ascending aorta measures up to 4.5 cm. Bones: No acute osseous abnormality. Incidentals: None. IMPRESSION: 1. No hemodynamically significant stenosis, occlusion or aneurysmal formation. 2. Mild aneurysmal dilatation the ascending aorta. 3. Bilateral perihilar interstitial and airspace opacities may reflect edema. Component of CHF is exc luded.
[2020-07-16 13:08] LABS: #Eosinphils 0.3 thou/uL (0.0-0.7); #Lymphocytes 3.3 thou/uL (1.20-3.40); #Neutrophils 6.5 thou/uL (1.40-6.50); %Basophils 0.2 % (0.0-1.0); %Eosinophils 2.5 % (0.0-10.0); %Lymphocytes 29.6 % (21.0-51.0); %Monocytes 8.8 % (0.0-10.0); %Neutrophils 58.9 % (42.0-75.0); Hemoglobin 12.4 g/dL (12.0-16.0); Mean Corpuscular HGB CONC 33.3 g/dL (32.0-36.0); Mean Corpuscular Hemoglobin 30.6 pg (27.0-31.0); Mean Corpuscular Volume 91.8 fL (78.0-98.0); Mean Platelet Volume 8.3 fL (7.4-10.4); Platelet Count 257 thou/uL (130-400); RBC Distribution Width 12.3 % (11.5-14.5); Red Blood Cell (RBC) Count 4.06 mill/uL (4.20-5.40); White Blood Cell (WBC) Count 11.1 thou/uL (4.8-10.8)
[2020-07-16] MEDS ORDERED: niCARdipine 20MG In NaCl 20 MG/200 ML BAG ONE (13:12)
[2020-07-16 13:15] LABS: Prothrombin Time 13.5 sec (12.0-14.7)
[2020-07-16 13:31] LABS: ALT (SGPT) 13 U/L (8-55); AST (SGOT) 14 U/L (5-34); Albumin 3.6 g/dL (3.4-4.8); Alkaline Phosphatase 71 U/L (40-110); Anion Gap 14 mmol/L (10-20); BUN (Urea Nitrogen) 16 mg/dL (9.8-20.1); Bilirubin, Total 0.4 mg/dL (0.2-1.2); CK (CPK) 57 U/L (29-168); Calc. Creatinine Clearance 0 mL/min (70-130); Calcium 8.6 mg/dL (7.8-10.44); Carbon Dioxide 23 mmol/L (23-31); Chloride 102 mmol/L (98-107); Globulin 2.5 g/dL (2.4-3.5); Glucose 102 mg/dL (83-110); Lipase 62 U/L (8-78); Magnesium 1.7 mg/dL (1.6-2.6); Potassium 3.7 mmol/L (3.5-5.1); Protein, Total 6.1 g/dL (6.0-8.3); Sodium 135 mmol/L (136-145)
--- NOTE | 2020-07-16 13:34 | RAD ---
Chest AP view INDICATION: History of stroke COMPARISON: March 23, 2020 FINDINGS: Lungs: The lungs are clear Cardiac silhouette: There is stable moderate cardiomegaly and a dual-lead AICD. Pulmonary vasculature: Normal Pleural spaces: No pleural effusion or pneumothorax is demonstrated. Upper abdomen: No abnormality seen. Osseous structures: No acute osseous abnormality. Additional findings: None. IMPRESSION: Stable moderate cardiomegaly without evidence of cardiac decompensation.
--- NOTE | 2020-07-16 14:06 | PDOC.HHP ---
Hospitalist HPI - History of Present Illness Right hemiplegia History of Present Illness: PCP: Dr. San The patient is a 79-year-old female with a past medical history significant for absence seizures, autonomic dysfunction, atrial fibrillation (on Eliquis), CAD, CHF (pacemaker), HTN, HLD and anxiety that presents to the emergency department via air med from [place] for the above complaint. Per ER documentation, the patient had right-sided hemiplegia so family members called EMS because they were concerned she was having a stroke. However, upon interviewing another family member at bedside in the ED, it appears to be the patient had a syncopal episode. The patient's daughter and caregiver, Unique, was at bedside and gave the following information for the H&P. She reports that her mother was sitting in her wheelchair in the kitchen preparing food when she became unresponsive. She reports that she slumped forward and had all of her extremities limp. She reports that this is happened in the past, thinking that is her absent seizures, however, this time was "different". Her daughter reports that normally she can embrace her mother and speak to her and she will respond. This time, the patient was unresponsive. Over the past several months. She reports 1-2 episodes per week, again thinking it was just her absence seizures.. She denies any recent trauma or falls. No recent changes to her home medications. No recent illness or fevers. No known sick or Covid contacts. No recent surgeries or procedures. The patient herself does not recall the incident at all. EMS was called and the patient was taken by air med to our hospital. Her daughter also reports that this has been happening more frequently. Family also denies at the time of symptom onset, no chest pain, heart palpitations, shortness of breath, abdominal pain, hematochezia/hemoptysis. She was not complaining of any dysuria or hematuria. Upon arrival to the ED, patient was found to be hypertensive. Initial NIH was 12. Patient was placed on a Cardene drip. CT/CTA were performed and there were no acute process. The patient was a TPA candidate. However, the patient symptoms significantly improved and her NIH is currently a 1. ER MD discussed this with family and family declined the administration of TPA. Patient will be admitted up to the floor for further work-up. ED Course: VITAL SIGNS Sat Jul 16, 2020 12:53 JUVENAL Wahl Tori BP: 176/97, Pulse: 80, Resp: 20, O2 sat: 94 on (2L Oxygen), Time: 07/16/2020 12:53. VITAL SIGNS Sat Jul 16, 2020 13:13 JUVENAL Wahl Tori BP: 184/101, Pulse: 80, Resp: 21, Pain: 0, O2 sat: 100 on (2L Oxygen), Time: 07/16/2020 13:13. VITAL SIGNS Sat Jul 16, 2020 14:24 JUVENAL Haji Miranda BP: 179/108, Pulse: 83, Resp: 16, Pain: 0, O2 sat: 100 on (2L Oxygen), Time: 07/16/2020 14:24. Medications: Cardene IV in sodium chloride 5 mg/hr IV Piggy Back Acknowledged 13:12 07/16/2020 aspirin oral 325 mg Oral Given 14:15 07/16/2020 Hospitalist ROS - Review of Systems Constitutional: denies: fever, chills Respiratory: denies: cough, shortness of breath, hemoptysis Cardiovascular: denies: chest pain, palpitations Gastrointestinal: denies: nausea, vomiting, abdominal pain, diarrhea, constipation, melena, hematochezia Genitourinary: denies: dysuria, hematuria Skin: denies: rash Neurological: reports: weakness, confusion All other systems reviewed; all pertinent +/- noted in HPI/Subj - Medication Medications: K-Dur Sat Jul 16, 2020 13:07 JUVENAL Wahl Tori TABLET, EXT RELEASE, PARTICLES/CRYSTALS : Strength - 10 mEq : ORAL Patient Dose: 10 mEq Oral 2 times a day.allergy to potassium IV but not the oral med. torsemide oral Sat Jul 16, 2020 13:07 JUVENAL Wahl Tori TABLET : Strength - 20 mg : ORAL Patient Dose: 5 mg Oral once a day. Xanax Sat Jul 16, 2020 13:07 JUVENAL Wahl Tori TABLET : Strength - 0.25 mg : ORAL Patient Dose: 0.25 mg Oral once a day. venlafaxine Sat Jul 16, 2020 13:07 JUVENAL Wahl Tori CAPSULE, EXT RELEASE 24 HR : Strength - 150 mg : ORAL Patient Dose: 150 mg Oral once a day. meTOPROLOL succinate Sat Jul 16, 2020 13:07 JUVENAL Wahl Tori TABLET, EXTENDED RELEASE 24 HR : Strength - 25 mg : ORAL Patient Dose: 0.5 tab(s) Oral 2 times a day. Eliquis Sat Jul 16, 2020 13:07 JUVENAL Wahl, Sherry tablet : Strength - 2.5 mg : ORAL Patient Dose: 2.5 mg Oral 2 times a day (before meals). Protonix oral Sat Jul 16, 2020 13:07 JUVENAL Wahl, Sherry granules DR for susp in packet : Strength - 40 mg : ORAL Patient Dose: 1 tab(s) Oral once a day (in the morning). digoxin oral Sat Jul 16, 2020 13:07 JUVENAL Wahl, Sherry tablet : Strength - 125 mcg : ORAL Patient Dose: 1 tab(s) Oral once a day (in the morning). simvastatin Sat Jul 16, 2020 13:07 JUVENAL Wahl, Sherry TABLET : Strength - 40 mg : ORAL Patient Dose: 40 mg Oral once a day. QUEtiapine Sat Jul 16, 2020 13:08 JUVENAL Wahl, Sherry tablet : Strength - 25 mg : ORAL Patient Dose: Unknown. gabapentin Sat Jul 16, 2020 14:44 JUVENAL Wahl, Sherry capsule : Strength - 100 mg : ORAL Patient Dose: 1 tab(s) Oral once a day (at bedtime). Entresto Sat Jul 16, 2020 14:45 JUVENAL Wahl, Sherry tablet : Strength - 24 mg-26 mg : ORAL Patient Dose: 1 tab(s) Oral 2 times a day. levETIRAcetam oral Sat Jul 16, 2020 14:45 JUVENAL Wahl Tori tablet : Strength - 500 mg : ORAL Patient Dose: 1 tab(s) Oral 2 times a day. 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 negative: ill appearing General - other findings: Appears comfortable Eye: PERRL, anicteric sclera ENT: normocephalic atraumatic, moist mucosa Neck: supple, symmetric, no lymphadenopathy, no carotid bruit Neck - other findings: No cervical spinous tenderness, full range of motion Heart: RRR, no murmur, no gallops, no rubs, normal peripheral pulses Respiratory: CTAB, no wheezes, no rales, no ronchi, normal chest expansion, no tachypnea Gastrointestinal: soft, normal bowel sounds, no bruit, no guarding, no rigidity Extremities: no cyanosis, no edema Skin: no rashes Neurological: cranial nerve grossly intact Neurological - other findings: GCS 15, right lower extremity drift Psychiatric: normal affect, A&O x 3 Hospitalist Results - Labs Result Diagrams: 07/16/20 13:00 07/16/20 13:00 Lab results: WBC 11.1 thou/uL (4.8-10.8) H 07/16/20 13:00 Hgb 12.4 g/dL (12.0-16.0) 07/16/20 13:00 Hct 37.3 % (36.0-47.0) 07/16/20 13:00 MCV 91.8 fL (78.0-98.0) 07/16/20 13:00 Plt Count 257 thou/uL (130-400) 07/16/20 13:00 Neutrophils % 58.9 % (42.0-75.0) 07/16/20 13:00 Sodium 135 mmol/L (136-145) L 07/16/20 13:00 Potassium 3.7 mmol/L (3.5-5.1) 07/16/20 13:00 Chloride 102 mmol/L (98-107) 07/16/20 13:00 Carbon Dioxide 23 mmol/L (23-31) 07/16/20 13:00 BUN 16 mg/dL (9.8-20.1) 07/16/20 13:00 Creatinine 0.85 mg/dL (0.6-1.1) 07/16/20 13:00 Glucose 102 mg/dL (83-110) 07/16/20 13:00 Calcium 8.6 mg/dL (7.8-10.44) 07/16/20 13:00 Total Bilirubin 0.4 mg/dL (0.2-1.2) 07/16/20 13:00 AST 14 U/L (5-34) 07/16/20 13:00 ALT 13 U/L (8-55) 07/16/20 13:00 Alkaline Phosphatase 71 U/L (40-110) 07/16/20 13:00 Creatine Kinase 57 U/L (29-168) 07/16/20 13:00 Troponin I 0.010 ng/mL (< 0.028) 07/16/20 13:00 Serum Total Protein 6.1 g/dL (6.0-8.3) 07/16/20 13:00 Albumin 3.6 g/dL (3.4-4.8) 07/16/20 13:00 Lipase 62 U/L (8-78) 07/16/20 13:00 - EKG Interpretation EKG: Heart rate 80 QTc 470, AV paced rhythm - Radiology Interpretation CT scan - head Status: report reviewed by me Additional Comment: IMPRESSION: No acute intracranial abnormality. Chest x-ray Status: report reviewed by me Additional Comment: IMPRESSION: Stable moderate cardiomegaly without evidence of cardiac decompensation. Other Status: report reviewed by me Additional Comment: CTA head and neck IMPRESSION: 1. No hemodynamically significant stenosis, occlusion or aneurysmal formation. 2. Mild aneurysmal dilatation the ascending aorta. 3. Bilateral perihilar interstitial and airspace opacities may reflect edema. Component of CHF is excluded. Hospitalist H&P A/P - Problem (1) Syncope Code(s): R55 - SYNCOPE AND COLLAPSE Status: Acute (2) Absence seizure disorder Code(s): G40.A09 - ABSENCE EPILEPTIC SYNDROME, NOT INTRACTABLE, W/O STAT EPI Status: Chronic (3) Autonomic dysfunction Code(s): G90.9 - DISORDER OF THE AUTONOMIC NERVOUS SYSTEM, UNSPECIFIED Status: Chronic (4) Atrial fibrillation Code(s): I48.91 - UNSPECIFIED ATRIAL FIBRILLATION Status: Chronic (5) CAD (coronary artery disease) Code(s): I25.10 - ATHSCL HEART DISEASE OF [place] CORONARY ARTERY W/O ANG PCTRS Status: Chronic (6) CHF (congestive heart failure) Code(s): I50.9 - HEART FAILURE, UNSPECIFIED Status: Chronic (7) HTN (hypertension) Code(s): I10 - ESSENTIAL (PRIMARY) HYPERTENSION Status: Chronic (8) HLD (hyperlipidemia) Code(s): E78.5 - HYPERLIPIDEMIA, UNSPECIFIED Status: Chronic (9) GERD (gastroesophageal reflux disease) Code(s): K21.9 - GASTRO-ESOPHAGEAL REFLUX DISEASE WITHOUT ESOPHAGITIS Status: Chronic - Plan Plan: 79/F with PMH absence seizures, CAD, CHF, autonomic dysfunction presents for syncope. Admit to stroke unit, observation status. Expected length of stay less than 2 midnights. Presented hypertensive, NL BP HR, RR, SPO2, afebrile. EKG AV paced CXR no acute process CT brain/CTA head and neck no acute process. Troponin negative, mag 1.7 CMP/CBC/coags unremarkable. #Syncope Upon exam, symptoms significantly improved. Right lower extremity drift present. NIH 1. CVA versus seizure. Continue aspirin Order MRI, echocardiogram. Consult stroke team and neurology. Order EEG, prolactin, CPK. Check TSH, UA, mag level, FLP Neurochecks #Absence seizure disorder Consult neurology. Order EEG. Check CPK and prolactin level stat. Restart patient's home dose of Keppra. Seizure precautions. #Autonomic dysfunction Confirmed with tilt table test per family. Has severe orthostatic hypotension. We will not check orthostatic vital signs. #Atrial fibrillation Permanent. EKG AV paced. Patient on Eliquis, resume Eliquis. #CAD Chronic. Trend troponins. #CHF Chronic. Continue patient's home dose Entresto, torsemide, Toprol, dig, K-Dur Check digoxin level. Interrogate pacemaker. No signs of fluid volume overload. #Hypertension Patient appears hypertensive, typically placed on Cardene drip for TPA protocol. BP Currently controlled. We will restart home medications when reconciled by nursing. #Hyperlipidemia Restart patient's home dose of simvastatin. #GERD Restart patient's home dose of Protonix. No pharmacological DVT prophylaxis. SCDs for DVT prophylaxis. Protonix for GI prophylaxis. Full code. The patient's caregiver/daughter is Unique at [phone] Glasgow.
[2020-07-16] MEDS ORDERED: Aspirin Chewable 81 MG TAB ONE (14:09)
[2020-07-16] MEDS ORDERED: Iopamidol-370 76% 500 ML 1 ML ONE (15:37)
[2020-07-16] MEDS ORDERED: Labetalol HCl 100 MG/20 ML VIAL SLOW IVP PRN (16:03)
[2020-07-16] MEDS ORDERED: Bisacodyl 5 MG TAB PO PRN (16:08)
[2020-07-16] MEDS ORDERED: Ondansetron ODT 4 MG TAB PO PRN (16:08)
[2020-07-16] MEDS ORDERED: Senokot S 8.6-50 MG TAB PO PRN (16:08)
[2020-07-16] MEDS ORDERED: Magnesium 2 GM/50 ML 2 GM in Premix Bag 1 BAG IVPB SCH (16:45)
[2020-07-16 16:54] LABS: Bilirubin Negative (Negative); Blood, Urine Negative (Negative); Clarity Clear (Clear); Glucose, Urine (Dipstick) Normal (Negative); Ketone, Urine Negative (Negative); Leukocyte Negative Leu/uL (Negative); Nitrite Negative (Negative); Protein, Urine (Dipstick) Negative (Neg-Trace); Urobilinogen Normal mg/dL (Less than 2)
[2020-07-16 16:55] LABS: Specific Gravity, Urine 1.049 (1.002-1.036)
[2020-07-16 17:20] LABS: Digoxin 0.53 ng/mL (0.8-2.0)
[2020-07-16 17:21] LABS: Magnesium 1.8 mg/dL (1.6-2.6)
[2020-07-16 17:23] LABS: Troponin I 0.015 ng/mL (< 0.028)
[2020-07-16] MEDS ORDERED: Potassium Chloride 10 MEQ TAB PO PRN (18:29)
[2020-07-16 18:46] VITALS: BMI 34.0
[2020-07-16 19:52] LABS: Troponin I 0.014 ng/mL (< 0.028)
[2020-07-16] MEDS: Digoxin 0.125 MG TAB PO SCH (20:59)
[2020-07-16] MEDS: ALPRAZolam 0.25 MG TAB PO PRN (20:59)
[2020-07-16] MEDS: levETIRAcetam 500 MG TAB PO SCH (21:00)
[2020-07-16] MEDS ORDERED: levETIRAcetam 500 MG TAB PO SCH (21:00)
[2020-07-16] MEDS: Atorvastatin Calcium 20 MG TAB PO SCH (21:00)
[2020-07-16] MEDS: Apixaban 2.5 MG TAB PO SCH (21:14)
[2020-07-17 05:06] LABS: #Basophils 0.1 thou/uL (0.0-0.2); #Eosinphils 0.5 thou/uL (0.0-0.7); #Lymphocytes 4.2 thou/uL (1.20-3.40); #Neutrophils 6.4 thou/uL (1.40-6.50); %Basophils 0.6 % (0.0-1.0); %Eosinophils 3.9 % (0.0-10.0); %Lymphocytes 34.5 % (21.0-51.0); %Monocytes 8.5 % (0.0-10.0); %Neutrophils 52.5 % (42.0-75.0); Hemoglobin 13.2 g/dL (12.0-16.0); Mean Corpuscular HGB CONC 32.7 g/dL (32.0-36.0); Mean Corpuscular Hemoglobin 30.3 pg (27.0-31.0); Mean Corpuscular Volume 92.7 fL (78.0-98.0); Mean Platelet Volume 8.3 fL (7.4-10.4); Platelet Count 277 thou/uL (130-400); RBC Distribution Width 12.2 % (11.5-14.5); Red Blood Cell (RBC) Count 4.36 mill/uL (4.20-5.40); White Blood Cell (WBC) Count 12.1 thou/uL (4.8-10.8)
[2020-07-17 05:29] LABS: Anion Gap 12 mmol/L (10-20); BUN (Urea Nitrogen) 13 mg/dL (9.8-20.1); Calc. Creatinine Clearance 89 mL/min (70-130); Calcium 9.3 mg/dL (7.8-10.44); Carbon Dioxide 29 mmol/L (23-31); Cardiac Risk 4.3 (Less than 4.5); Chloride 102 mmol/L (98-107); Cholesterol 181 mg/dl (< 200 Desired); Glucose 101 mg/dL (83-110); HDL Cholesterol 42 mg/dL (>60 Neg Risk); LDL Cholesterol, Calculated 110 mg/dL; Potassium 3.9 mmol/L (3.5-5.1); Sodium 139 mmol/L (136-145); Triglycerides 144 mg/dL (Less than 150)
[2020-07-17] MEDS ORDERED: diphenhydrAMINE 50 MG/ML VIAL IVP PRN (08:31)
[2020-07-17] MEDS ORDERED: Lorazepam 2 MG/ML VIAL SLOW IVP PRN (08:32)
[2020-07-17] MEDS: Apixaban 2.5 MG TAB PO SCH ×2 (08:59→21:38)
[2020-07-17] MEDS: Aspirin 81 mg Enteric Coated Tablet PO SCH (08:59)
[2020-07-17] MEDS ORDERED: FLU VACC QS2020-21(65YR UP)/PF 240 MCG/0.7 ML SYRINGE IM ONE (09:00)
[2020-07-17] MEDS: Acetaminophen 325 MG TAB PO PRN ×3 (09:00→21:38)
--- NOTE | 2020-07-17 11:48 | PDOC.HOSPP ---
- Subjective Encounter Date: 07/17/20 Encounter Time: 08:30 Subjective: patient evaluated; denies new complaints; reports a mild headache; reports the syncope/seizure episodes have been happening for awhile; reports she gets very tired afterward and takes a long nap. Reports increasing weakness over the last several weeks. - Objective Vital Signs & Weight: Vital Signs (12 hours) Temp Pulse Resp BP Pulse Ox 07/17/20 11:09 144/77 H 07/17/20 08:59 183/89 H 07/17/20 08:27 97.6 F 84 19 179/93 H 98 07/17/20 08:00 98 07/17/20 04:32 98.0 F 66 16 148/72 H 97 07/17/20 01:01 175/86 H 07/17/20 00:00 97.3 F L 88 16 224/110 H 97 Weight Weight 98.43 kg I&O: 07/16/20 07/17/20 07/18/20 06:59 06:59 06:59 Intake Total 350 Balance 350 Result Diagrams: 07/17/20 04:45 07/17/20 04:45 Additional Labs: Accuchecks 07/16/20 12:45 POC Glucose 101 H Hospitalist ROS - Review of Systems Constitutional: denies: fever, chills, sweats, weakness, malaise, other Eyes: denies: pain, vision change, conjunctivae inflammation, eyelid inflammatio n, redness, other ENT: denies: ear pain, ear discharge, nose pain, nose discharge, nose congestion, mouth pain, mouth swelling, throat pain, throat swelling, other Respiratory: denies: cough, dry, shortness of breath, hemoptysis, SOB with excertion, pleuritic pain, sputum, wheezing, other Cardiovascular: denies: chest pain, palpitations, orthopnea, paroxysmal noc. dyspnea, edema, light headedness, other Gastrointestinal: denies: nausea, vomiting, abdominal pain, diarrhea, constipation, melena, hematochezia, other Musculoskeletal: reports: leg pain Neurological: reports: weakness, confusion - Medication Medications: Active Medications Generic Name Dose Route Start Last Admin Trade Name Freq PRN Reason Stop Dose Admin Acetaminophen 650 mg 07/16/20 16:08 07/17/20 09:00 Acetaminophen 325 Mg Tab PO 650 mg Q4H PRN Administration Headache/Fever/Mild Pain (1-3) Alprazolam 0.25 mg 07/16/20 18:29 07/16/20 20:59 Alprazolam 0.25 Mg Tab PO 0.25 mg BIDPRN PRN Administration Anxiety Apixaban 2.5 mg 07/16/20 21:00 07/17/20 08:59 Apixaban 2.5 Mg Tab PO 2.5 mg BID LENORA Administration Aspirin 81 mg 07/17/20 09:00 07/17/20 08:59 Aspirin 81 Mg Enteric Coated Tablet PO 81 mg DAILY LENORA Administration Atorvastatin Calcium 20 mg 07/16/20 21:00 07/16/20 21:00 Atorvastatin Calcium 20 Mg Tab PO 20 mg HS LENORA Administration Digoxin 0.125 mg 07/16/20 21:00 07/16/20 20:59 Digoxin 0.125 Mg Tab PO 0.125 mg HS LENORA Administration Levetiracetam 500 mg 07/16/20 21:00 07/16/20 21:00 Levetiracetam 500 Mg Tab PO 500 mg HS LENORA Administration Metoprolol Succinate 12.5 mg 07/16/20 21:00 07/16/20 21:00 Metoprolol Succinate Xl 25 Mg Tab PO 12.5 mg HS LENORA Administration Pantoprazole Sodium 40 mg 07/17/20 07:30 07/17/20 08:59 Pantoprazole 40 Mg Tab PO 40 mg BID-AC LENORA Administration Sacubitril/Valsartan 1 tab 07/17/20 09:00 07/17/20 08:59 Sacubitril 24mg/Valsartan 26mg Tab PO 1 tab DAILY LENORA Administration - Exam General Appearance: awake alert Eye: PERRL, anicteric sclera ENT: normocephalic atraumatic, moist mucosa Neck: supple Heart: RRR, no murmur Respiratory: CTAB, no wheezes Gastrointestinal: soft, non-tender, normal bowel sounds Extremities: no edema Skin: normal turgor Neurological: cranial nerve grossly intact Neurological - other findings: right leg drift Musculoskeletal: normal tone, generalized weakness Psychiatric: normal affect, A&O x 3 Hosp A/P (1) Syncope Code(s): R55 - SYNCOPE AND COLLAPSE Status: Acute (2) CAD (coronary artery disease) Code(s): I25.10 - ATHSCL HEART DISEASE OF [place] CORONARY ARTERY W/O ANG PCTRS Status: Chronic (3) CHF (congestive heart failure) Code(s): I50.9 - HEART FAILURE, UNSPECIFIED Status: Chronic (4) GERD (gastroesophageal reflux disease) Code(s): K21.9 - GASTRO-ESOPHAGEAL REFLUX DISEASE WITHOUT ESOPHAGITIS Status: Chronic (5) HLD (hyperlipidemia) Code(s): E78.5 - HYPERLIPIDEMIA, UNSPECIFIED Status: Chronic (6) HTN (hypertension) Code(s): I10 - ESSENTIAL (PRIMARY) HYPERTENSION Status: Chronic (7) Absence seizure disorder Code(s): G40.A09 - ABSENCE EPILEPTIC SYNDROME, NOT INTRACTABLE, W/O STAT EPI Status: Chronic - Plan 79F admitted for syncope/absence seizure; with a hx of absence seizures, CAD, CHF, autonomic dysfunction. She was admitted to the Stroke unit and is awaiting neuro consult and echo and stroke team evaluation. She was finishing up the EEG this morning. #Syncope vs Seizures Right lower extremity drift Continue ASA Echo; MRI Neuro checks Stroke team evaluation Restart home meds including Keppra EEG has been done #History of absence seizures Neuro consult Restart Keppra Seizure precautions #Autonomic dysfunction Has hx of orthostatic hypotension #Atrial Fib AV paced On monitor while on Stroke #Hx of HTN, HLD, GERD, CHF, CAD Will restart home meds - will recheck digoxin level in AM Echo pending Full Code SCDs for DVT prophlaxis Protonix for GI proplaxis
--- NOTE | 2020-07-17 12:16 | PDOC.EEG ---
Neurology EEG Report - Report Report: Report: This EEG was performed using 24 channel Goodzer video digital EEG machine with 24 disc electrodes. This was an extended 2 hours 5 minutes of EEG recording. Digital analysis of the EEG was done for Vishal and seizure detection which revealed no abnormalities. Background: The posterior background rhythm is 9-10 Hz. The posterior background rhythm attenuates with eye opening and enhances with eye closure Photic stimulation: Bioccipital symmetric driving response seen with photic stimulation. Hyperventilation: Not performed. Sleep: Drowsiness and sleep are observed. EEG diagnosis: Occasional irregular theta activity seen throughout the recording. Clinical interpretation: This EEG is consistent with mild generalized nonspecific cerebral dysfunction.
--- NOTE | 2020-07-17 18:26 | CON ---
NEUROLOGY CONSULTATION DATE OF CONSULTATION: 07/17/2020 REASON FOR CONSULTATION: Right-sided weakness. HISTORY OF PRESENT ILLNESS: Ms. Ward is a 79-year-old female with medical history significant for seizure disorder, autonomic dysfunction, atrial fibrillation, on Eliquis, coronary artery disease, congestive heart failure, status post pacemaker placement, hypertension, hyperlipidemia, and anxiety, presented to the emergency department via [facility] from [place] because of right-sided weakness. Per ED, she had right-sided hemiplegia, so family called EMS because they were concerned she was having a stroke. It also appeared that she had a syncopal episode, during which she passed out. History is obtained from the patient and also from the review of the medical records. Per family member, she was sitting in a wheelchair in the kitchen, mentioned preparing food, and at that time, she became unresponsive, she slumped forward and all her extremities became limp. This had happened in the past and they thought at this time that it was different, so she decided to speak to her mother, but she was unresponsive. Over the past several months, this happened when she had 1 to 2 episodes per week, which the family attributed to seizures. The patient denies nausea, vomiting, headache, chest pain, abdominal pain, recent illness, or recent contact with COVID. She also denies any problems with speech, swallowing, but does complain of dizziness. In the emergency room, she was found to be hypertensive. Her initial NIH was 12. She was placed on Cardene drip, and CTA of the head and neck was performed, which was negative for acute intracranial process. The patient's symptoms significantly improved and her NIH became 1, so the family and the patient declined tPA. PAST MEDICAL HISTORY: 1. Seizure disorder. 2. Autonomic dysfunction. 3. Atrial fibrillation, on Eliquis. 4. Coronary artery disease. 5. Congestive heart failure, status post pacemaker placement. 6. Hypertension. 7. Hyperlipidemia. 8. Anxiety disorder. PAST SURGICAL HISTORY: 1. Status post pacemaker placement. 2. Appendectomy. 3. Cholecystectomy. 4. Hysterectomy. SOCIAL HISTORY: The patient lives with family. Denies smoking, alcohol, or illegal drug use. FAMILY HISTORY: Significant for cardiac disease and cerebrovascular accident. ALLERGIES: VAL inhibitors, Hydrocodone REVIEW OF SYSTEMS: Constitutional: denies: fever, chills, sweats, weakness, malaise, other Eyes: denies: pain, vision change, conjunctivae inflammation, eyelid inflammation, redness, other ENT: denies: ear pain, ear discharge, nose pain, nose discharge, nose congestion, mouth pain, mouth swelling, throat pain, throat swelling, other Respiratory: denies: cough, dry, shortness of breath, hemoptysis, SOB with excertion, pleuritic pain, sputum, wheezing, other Cardiovascular: denies: chest pain, palpitations, orthopnea, paroxysmal noc. dyspnea, edema, light headedness, other Gastrointestinal: denies: nausea, vomiting, abdominal pain, diarrhea, constipation, melena, hematochezia, other Musculoskeletal: reports: leg pain Neurological: reports: weakness, confusion Vital Signs & Weight: Vital Signs (12 hours) Temp Pulse Resp BP Pulse Ox 07/17/20 11:09 144/77 H 07/17/20 08:59 183/89 H 07/17/20 08:27 97.6 F 84 19 179/93 H 98 07/17/20 08:00 98 07/17/20 04:32 98.0 F 66 16 148/72 H 97 07/17/20 01:01 175/86 H 07/17/20 00:00 97.3 F L 88 16 224/110 H 97 Weight Weight 98.43 kg I&O: 07/16/20 07/17/20 07/18/20 06:59 06:59 06:59 Intake Total 350 Balance 350 Additional Labs: Accuchecks 07/16/20 12:45 POC Glucose 101 H PHYSICAL EXAMINATION: General Appearance: awake alert Eye: PERRL, anicteric sclera ENT: normocephalic atraumatic, moist mucosa Neck: supple Heart: RRR, no murmur Respiratory: CTAB, no wheezes Gastrointestinal: soft, non-tender, normal bowel sounds Extremities: no edema Skin: normal turgor Neurological: Mental status, the patient is alert and oriented to person, place, and time. Speech is clear. Cranial nerves 2 through 12 intact. Motor; muscle tone and bulk are normal. Strength 5/5 in the left upper and lower extremity. right upper extremity 4+/5. Cerebellar, finger-nose testing intact. Gait deferred due to the patient's safety reasons. DATA REVIEWED: I reviewed the labs, which were essentially unremarkable. Heart rate showed paced rhythm. CT scan of the brain reviewed, which was negative for acute intracranial pathology. Chest x-ray did not reveal any acute process, and CTA of the head and neck did not reveal hemodynamically significant stenosis. Active Medications Generic Name Dose Route Start Last Admin Trade Name Freq PRN Reason Stop Dose Admin Acetaminophen 650 mg 07/16/20 16:08 07/17/20 09:00 Acetaminophen 325 Mg Tab PO 650 mg Q4H PRN Administration Headache/Fever/Mild Pain (1-3) Alprazolam 0.25 mg 07/16/20 18:29 07/16/20 20:59 Alprazolam 0.25 Mg Tab PO 0.25 mg BIDPRN PRN Administration Anxiety Apixaban 2.5 mg 07/16/20 21:00 07/17/20 08:59 Apixaban 2.5 Mg Tab PO 2.5 mg BID LENORA Administration Aspirin 81 mg 07/17/20 09:00 07/17/20 08:59 Aspirin 81 Mg Enteric Coated Tablet PO 81 mg DAILY LENORA Administration Atorvastatin Calcium 20 mg 07/16/20 21:00 07/16/20 21:00 Atorvastatin Calcium 20 Mg Tab PO 20 mg HS LENORA Administration Digoxin 0.125 mg 07/16/20 21:00 07/16/20 20:59 Digoxin 0.125 Mg Tab PO 0.125 mg HS LENORA Administration Levetiracetam 500 mg 07/16/20 21:00 07/16/20 21:00 Levetiracetam 500 Mg Tab PO 500 mg HS LENORA Administration Metoprolol Succinate 12.5 mg 07/16/20 21:00 07/16/20 21:00 Metoprolol Succinate Xl 25 Mg Tab PO 12.5 mg HS LENORA Administration Pantoprazole Sodium 40 mg 07/17/20 07:30 07/17/20 08:59 Pantoprazole 40 Mg Tab PO 40 mg BID-AC LENORA Administration Sacubitril/Valsartan 1 tab 07/17/20 09:00 07/17/20 08:59 Sacubitril 24mg/Valsartan 26mg Tab PO 1 tab DAILY LENORA Administration ASSESSMENT AND PLAN: (1) Syncope Code(s): R55 - SYNCOPE AND COLLAPSE Status: Acute (2) CAD (coronary artery disease) Code(s): I25.10 - ATHSCL HEART DISEASE OF [place] CORONARY ARTERY W/O ANG PCTRS Status: Chronic (3) CHF (congestive heart failure) Code(s): I50.9 - HEART FAILURE, UNSPECIFIED Status: Chronic (4) GERD (gastroesophageal reflux disease) Code(s): K21.9 - GASTRO-ESOPHAGEAL REFLUX DISEASE WITHOUT ESOPHAGITIS Status: Chronic (5) HLD (hyperlipidemia) Code(s): E78.5 - HYPERLIPIDEMIA, UNSPECIFIED Status: Chronic (6) HTN (hypertension) Code(s): I10 - ESSENTIAL (PRIMARY) HYPERTENSION Status: Chronic (7) Absence seizure disorder Code(s): G40.A09 - ABSENCE EPILEPTIC SYNDROME, NOT INTRACTABLE, W/O STAT EPI Status: Chronic Ms. Maritza Ward is a 79-year-old female with medical history significant for seizures, congestive heart failure, coronary artery disease, autonomic dysfunction, presented with an episode of passing out and also right- sided weakness, which significantly improved on arrival to the emergency room. Differential diagnosis includes syncope versus seizures versus TIA. Consider MRI of the brain to rule out acute intracranial process. 2D echo completed, left ventricular ejection fraction is 30% to 35%. No thrombus or PFO. The patient follows with Dr. 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 Neuro checks every 4 hours. Observe seizure precaution. Continue Keppra for seizure prophylaxis. Continue aspirin and statin for secondary stroke prevention. The patient has several episodes suspicious for complex partial seizures in the last few months, so consider increasing the dose of Keppra to 750 mg p.o. b.i.d. EEG completed, which was negative for any ongoing seizure activity. Observe seizure precaution. Ativan 2 mg IV for seizure greater than 2 minutes. Continue Eliquis for atrial fibrillation. She is status post pacemaker placement, and permissive control of blood pressure at this time. Strict control of blood glucose. PT/OT/Speech. DVT prophylaxis. We will continue to follow. Plan discussed in detail with the patient and the nursing staff. Thank you for the consult. Job ID: [id number] [facility] HOSPITALSweetie
[2020-07-17] MEDS: Digoxin 0.125 MG TAB PO SCH (21:37)
[2020-07-17] MEDS: Gabapentin 100 MG CAP PO SCH (21:37)
[2020-07-17] MEDS: ALPRAZolam 0.25 MG TAB PO PRN (21:38)
[2020-07-17] MEDS: levETIRAcetam 500 MG TAB PO SCH (21:39)
[2020-07-17] MEDS: Atorvastatin Calcium 20 MG TAB PO SCH (21:39)
[2020-07-18] MEDS: Acetaminophen 325 MG TAB PO PRN ×2 (04:39→09:48)
[2020-07-18 05:50] LABS: #Eosinphils 0.3 thou/uL (0.0-0.7); #Lymphocytes 3.5 thou/uL (1.20-3.40); #Monocytes 0.9 thou/uL (0.11-0.59); #Neutrophils 4.9 thou/uL (1.40-6.50); %Basophils 0.3 % (0.0-1.0); %Eosinophils 3.3 % (0.0-10.0); %Lymphocytes 36.6 % (21.0-51.0); %Monocytes 9.3 % (0.0-10.0); %Neutrophils 50.6 % (42.0-75.0); Hemoglobin 12.7 g/dL (12.0-16.0); Mean Corpuscular HGB CONC 32.9 g/dL (32.0-36.0); Mean Corpuscular Hemoglobin 30.9 pg (27.0-31.0); Mean Corpuscular Volume 94.2 fL (78.0-98.0); Mean Platelet Volume 8.5 fL (7.4-10.4); Platelet Count 271 thou/uL (130-400); RBC Distribution Width 12.3 % (11.5-14.5); Red Blood Cell (RBC) Count 4.12 mill/uL (4.20-5.40); White Blood Cell (WBC) Count 9.7 thou/uL (4.8-10.8)
[2020-07-18 06:04] LABS: ALT (SGPT) 11 U/L (8-55); AST (SGOT) 15 U/L (5-34); Albumin 3.5 g/dL (3.4-4.8); Alkaline Phosphatase 75 U/L (40-110); Anion Gap 13 mmol/L (10-20); BUN (Urea Nitrogen) 13 mg/dL (9.8-20.1); Bilirubin, Total 0.3 mg/dL (0.2-1.2); Calc. Creatinine Clearance 89 mL/min (70-130); Calcium 8.9 mg/dL (7.8-10.44); Carbon Dioxide 27 mmol/L (23-31); Chloride 105 mmol/L (98-107); Digoxin 0.64 ng/mL (0.8-2.0); Globulin 2.8 g/dL (2.4-3.5); Glucose 116 mg/dL (83-110); Potassium 3.8 mmol/L (3.5-5.1); Protein, Total 6.3 g/dL (6.0-8.3); Sodium 141 mmol/L (136-145)
[2020-07-18] MEDS ORDERED: Acetaminophen/Codeine 30-300mg Tablet PO PRN (07:45)
[2020-07-18] MEDS ORDERED: Polyethylene Glycol 3350 17 GM Packet PO PRN (07:45)
[2020-07-18] MEDS ORDERED: Non-Formulary Item 1 EACH (Plecanatide [Trulance] 3 MG Tablet) PO PRN (07:45)
[2020-07-18] MEDS ORDERED: Torsemide 20 MG TAB PO PRN (07:45)
[2020-07-18] MEDS ORDERED: Meclizine HCl 25 MG TAB PO PRN (07:45)
--- NOTE | 2020-07-18 07:45 | PDOC.HOSPP ---
- Subjective Encounter Date: 07/18/20 Encounter Time: 10:30 Subjective: Patient complains of some persistent dizziness. Got very dizzy and slumped a bit when sitting up on bed with PT. Better with laying down afterward. Sitting up eating right now and some mild symptoms. - Objective Vital Signs & Weight: Vital Signs (12 hours) Temp Pulse Resp BP BP Pulse Ox 07/18/20 04:00 98.0 F 86 16 187/85 H 95 07/17/20 23:53 97.7 F 86 14 184/87 H 95 Weight Weight 217 lb I&O: 07/17/20 07/18/20 07/19/20 06:59 06:59 06:59 Intake Total 350 1020 Output Total 1000 Balance 350 20 Result Diagrams: 07/18/20 05:16 07/18/20 05:16 Hospitalist ROS - Review of Systems Constitutional: denies: fever Respiratory: denies: cough, shortness of breath Cardiovascular: denies: chest pain, palpitations Gastrointestinal: denies: nausea, vomiting, abdominal pain Neurological: reports: other (dizziness) - Medication Medications: Active Medications Generic Name Dose Route Start Last Admin Trade Name Freq PRN Reason Stop Dose Admin Acetaminophen 650 mg 07/16/20 16:08 07/18/20 04:39 Acetaminophen 325 Mg Tab PO 650 mg Q4H PRN Administration Headache/Fever/Mild Pain (1-3) Alprazolam 0.25 mg 07/16/20 18:29 07/17/20 21:38 Alprazolam 0.25 Mg Tab PO 0.25 mg BIDPRN PRN Administration Anxiety Apixaban 2.5 mg 07/16/20 21:00 07/17/20 21:38 Apixaban 2.5 Mg Tab PO 2.5 mg BID LENORA Administration Aspirin 81 mg 07/17/20 09:00 07/17/20 08:59 Aspirin 81 Mg Enteric Coated Tablet PO 81 mg DAILY LENORA Administration Atorvastatin Calcium 20 mg 07/16/20 21:00 07/17/20 21:39 Atorvastatin Calcium 20 Mg Tab PO 20 mg HS LENORA Administration Digoxin 0.125 mg 07/16/20 21:00 07/17/20 21:37 Digoxin 0.125 Mg Tab PO 0.125 mg HS LENORA Administration Gabapentin 100 mg 07/17/20 21:00 07/17/20 21:37 Gabapentin 100 Mg Cap PO 100 mg HS LENORA Administration Levetiracetam 500 mg 07/16/20 21:00 07/17/20 21:39 Levetiracetam 500 Mg Tab PO 500 mg HS LENORA Administration Metoprolol Succinate 12.5 mg 07/16/20 21:00 07/17/20 21:39 Metoprolol Succinate Xl 25 Mg Tab PO 12.5 mg HS LENORA Administration Pantoprazole Sodium 40 mg 07/17/20 07:30 07/17/20 15:44 Pantoprazole 40 Mg Tab PO 40 mg BID-AC LENORA Administration Quetiapine Fumarate 25 mg 07/17/20 21:00 07/17/20 21:39 Quetiapine Fumarate 25 Mg Tab PO 25 mg HS LENORA Administration Sacubitril/Valsartan 1 tab 07/17/20 09:00 07/17/20 08:59 Sacubitril 24mg/Valsartan 26mg Tab PO 1 tab DAILY LENORA Administration - Exam General Appearance: NAD, awake alert ENT: moist mucosa Heart: RRR, no murmur, no gallops, no rubs Respiratory: CTAB, no wheezes, no rales, no ronchi Gastrointestinal: soft, non-tender, non-distended, normal bowel sounds Neurological - other findings: generalized weakness Psychiatric: normal affect, normal behavior Hosp A/P (1) Syncope Code(s): R55 - SYNCOPE AND COLLAPSE Status: Acute (2) Absence seizure disorder Code(s): G40.A09 - ABSENCE EPILEPTIC SYNDROME, NOT INTRACTABLE, W/O STAT EPI Status: Chronic (3) Atrial fibrillation Code(s): I48.91 - UNSPECIFIED ATRIAL FIBRILLATION Status: Chronic (4) Autonomic dysfunction Code(s): G90.9 - DISORDER OF THE AUTONOMIC NERVOUS SYSTEM, UNSPECIFIED Status: Chronic (5) CAD (coronary artery disease) Code(s): I25.10 - ATHSCL HEART DISEASE OF [place] CORONARY ARTERY W/O ANG PCTRS Status: Chronic (6) CHF (congestive heart failure) Code(s): I50.9 - HEART FAILURE, UNSPECIFIED Status: Chronic (7) GERD (gastroesophageal reflux disease) Code(s): K21.9 - GASTRO-ESOPHAGEAL REFLUX DISEASE WITHOUT ESOPHAGITIS Status: Chronic (8) HLD (hyperlipidemia) Code(s): E78.5 - HYPERLIPIDEMIA, UNSPECIFIED Status: Chronic (9) HTN (hypertension) Code(s): I10 - ESSENTIAL (PRIMARY) HYPERTENSION Status: Chronic (10) COPD (chronic obstructive pulmonary disease) Status: Chronic Qualifiers: COPD type: unspecified COPD Qualified Code(s): J44.9 - Chronic obstructive pulmonary disease, unspecified (11) DM type 2 (diabetes mellitus, type 2) Status: Chronic Qualifiers: Diabetes mellitus terminal system operator insulin use: without terminal system operator use Diabetes mellitus complication status: with neurologic complications Diabetes mellitus complication detail: with polyneuropathy Qualified Code(s): E11.42 - Type 2 diabetes mellitus with diabetic polyneuropathy - Plan 79F admitted for syncope/absence seizure; with a hx of absence seizures, CAD, CHF, autonomic dysfunction. She was admitted to the Stroke unit and is awaiting neuro consult and echo and stroke team evaluation. She was finishing up the EEG this morning. #Syncope vs Seizures Right lower extremity drift Continue ASA Echo- EF 30-35%; MRI Pending Neuro checks Stroke team evaluation Restart home meds including Keppra EEG has been done- no seizure activity MRI pending #History of absence seizures Neuro consult Restarted Keppra Seizure precautions #Autonomic dysfunction Has hx of orthostatic hypotension #Atrial Fib AV paced On monitor while on Stroke #Hx of HTN, HLD, GERD, CHF, CAD Restarted home meds - BP still high so may need to increase Digoxin level low Cardiology consult ECHO with depressed EF Full Code SCDs for DVT prophlaxis, Eliquis Protonix for GI proplaxis
[2020-07-18] MEDS ORDERED: Plecanatide [Trulance] 3 MG PO PRN (08:01)
[2020-07-18] MEDS ORDERED: Torsemide 10 MG TAB PO PRN (08:02)
[2020-07-18] MEDS: Apixaban 2.5 MG TAB PO SCH ×2 (10:25→20:07)
[2020-07-18] MEDS: Venlafaxine HCl XR 150 MG CAP PO SCH ×2 (10:25→20:07)
[2020-07-18] MEDS: Aspirin 81 mg Enteric Coated Tablet PO SCH (10:26)
--- NOTE | 2020-07-18 11:35 | CT ---
CTA of the head with IV contrast and 3-D reformatted imaging. CTA of the neck with IV contrast and 3-D reformatted imaging. INDICATION: Left-sided deficits with facial droop and a aphasia COMPARISON: None FINDINGS: CTA OF THE HEAD WITH CONTRAST: CTA OF THE BRAIN: Right ICA: Patent. Right MCA: Patent. Right ERICA: Patent. ACOM: Patent. Left ICA: Patent. Left MCA: Patent. Left ERICA: Patent. PCOMs: Patent. Vertebral arteries: Patent. Basilar Artery: Patent. cyber security instructor: Patent. Incidentals: None. CTA OF THE NECK WITH CONTRAST: Right CCA: Patent. Right ICA: Patent. Right Subclavian: Patent. Right Vertebral Artery: Patent. Left CCA: Resolved] artery. Patent. Left ICA: Patent. Left Subclavian: Patent. Left Vertebral Artery: Patent. Aerodigestive tract: Clear. Parotids/Submandibular/Thyroid glands: Small calcifications within the thyroid gland. Submandibular and parotid glands are normal appearing. Lymph nodes: No pathologically enlarged lymph nodes. Lung Apices: There is bilateral perihilar interstitial and airspace opacities may reflect edema. The ascending aorta measures up to 4.5 cm. Bones: No acute osseous abnormality. Incidentals: None. IMPRESSION: 1. No hemodynamically significant stenosis, occlusion or aneurysmal formation. 2. Mild aneurysmal dilatation the ascending aorta. 3. Bilateral perihilar interstitial and airspace opacities may reflect edema. Component of CHF is exc luded. Transcribed Date/Time: 07/18/2020 11:35 AM
--- NOTE | 2020-07-18 12:41 | PDOC.NEUPN ---
- Subjective Encounter Date: 07/18/20 Subjective: Patient awake and follows commands appropriately. She does have one episode of dizziness this morning with some confusion when she was participating with physical therapy per nursing staff. - Objective Vital Signs & Weight: Vital Signs (12 hours) Temp Pulse Resp BP BP Pulse Ox 07/18/20 11:35 97.5 F L 86 18 140/78 97 07/18/20 09:45 175/84 H 07/18/20 07:45 97.8 F 84 16 176/79 H 97 07/18/20 04:00 98.0 F 86 16 187/85 H 95 Weight Weight 217 lb I&O: 07/17/20 07/18/20 07/19/20 06:59 06:59 06:59 Intake Total 350 1020 Output Total 1000 Balance 350 20 Result Diagrams: 07/18/20 05:16 07/18/20 05:16 Radiology Reviewed by me: Yes EKG Reviewed by me: Yes ROS - Review of Systems Constitutional: denies: fever, chills, sweats, weakness, malaise, other Eyes: denies: pain, vision change, conjunctivae inflammation, eyelid inflammation, redness, other ENT: denies: ear pain, ear discharge, nose pain, nose discharge, nose congestion, mouth pain, mouth swelling, throat pain, throat swelling, other Gastrointestinal: denies: nausea, vomiting, abdominal pain, diarrhea, constipation, melena, hematochezia, other Skin: denies: rash, lesions, elliott, bruising, other Neurological: reports: seizures All Systems: All other systems reviewed; all pertinent +/- noted in HPI/Subj - Medication Medications: Active Medications Generic Name Dose Route Start Last Admin Trade Name Freq PRN Reason Stop Dose Admin Acetaminophen 650 mg 07/16/20 16:08 07/18/20 09:48 Acetaminophen 325 Mg Tab PO 650 mg Q4H PRN Administration Headache/Fever/Mild Pain (1-3) Alprazolam 0.25 mg 07/16/20 18:29 07/17/20 21:38 Alprazolam 0.25 Mg Tab PO 0.25 mg BIDPRN PRN Administration Anxiety Apixaban 2.5 mg 07/16/20 21:00 07/18/20 10:25 Apixaban 2.5 Mg Tab PO 2.5 mg BID LENORA Administration Aspirin 81 mg 07/17/20 09:00 07/18/20 10:26 Aspirin 81 Mg Enteric Coated Tablet PO 81 mg DAILY LENORA Administration Atorvastatin Calcium 20 mg 07/16/20 21:00 07/17/20 21:39 Atorvastatin Calcium 20 Mg Tab PO 20 mg HS LENORA Administration Digoxin 0.125 mg 07/16/20 21:00 07/17/20 21:37 Digoxin 0.125 Mg Tab PO 0.125 mg HS LENORA Administration Gabapentin 100 mg 07/17/20 21:00 07/17/20 21:37 Gabapentin 100 Mg Cap PO 100 mg HS LENORA Administration Levetiracetam 500 mg 07/16/20 21:00 07/17/20 21:39 Levetiracetam 500 Mg Tab PO 500 mg HS LENORA Administration Metoprolol Succinate 12.5 mg 07/16/20 21:00 07/17/20 21:39 Metoprolol Succinate Xl 25 Mg Tab PO 12.5 mg HS LENORA Administration Pantoprazole Sodium 40 mg 07/17/20 07:30 07/18/20 10:25 Pantoprazole 40 Mg Tab PO 40 mg BID-AC LENORA Administration Quetiapine Fumarate 25 mg 07/17/20 21:00 07/17/20 21:39 Quetiapine Fumarate 25 Mg Tab PO 25 mg HS LENORA Administration Sacubitril/Valsartan 1 tab 07/17/20 09:00 07/18/20 10:26 Sacubitril 24mg/Valsartan 26mg Tab PO 1 tab DAILY LENORA Administration Venlafaxine HCl 150 mg 07/18/20 09:00 07/18/20 10:25 Venlafaxine Hcl Xr 150 Mg Cap PO 150 mg BID LENORA Administration - Exam General Appearance: NAD, awake alert Eye: PERRL ENT: normocephalic atraumatic Neck: supple Respiratory: CTAB Cardiovascular: RRR Gastrointestinal: soft Extremities: no cyanosis Skin: normal turgor Neurological: no new deficit Musculoskeletal: normal tone, normal strength, no muscle wasting PSYCH: normal affect, normal behavior, A&O x 3, somnolent Results - Labs Result Diagrams: 07/18/20 05:16 07/18/20 05:16 Lab results: WBC 9.7 thou/uL (4.8-10.8) 07/18/20 05:16 Hgb 12.7 g/dL (12.0-16.0) 07/18/20 05:16 Hct 38.8 % (36.0-47.0) 07/18/20 05:16 MCV 94.2 fL (78.0-98.0) 07/18/20 05:16 Plt Count 271 thou/uL (130-400) 07/18/20 05:16 Neutrophils % 50.6 % (42.0-75.0) 07/18/20 05:16 Sodium 141 mmol/L (136-145) 07/18/20 05:16 Potassium 3.8 mmol/L (3.5-5.1) 07/18/20 05:16 Chloride 105 mmol/L (98-107) 07/18/20 05:16 Carbon Dioxide 27 mmol/L (23-31) 07/18/20 05:16 BUN 13 mg/dL (9.8-20.1) 07/18/20 05:16 Creatinine 0.82 mg/dL (0.6-1.1) 07/18/20 05:16 Glucose 116 mg/dL (83-110) H 07/18/20 05:16 Calcium 8.9 mg/dL (7.8-10.44) 07/18/20 05:16 Total Bilirubin 0.3 mg/dL (0.2-1.2) 07/18/20 05:16 AST 15 U/L (5-34) 07/18/20 05:16 ALT 11 U/L (8-55) 07/18/20 05:16 Alkaline Phosphatase 75 U/L (40-110) 07/18/20 05:16 Creatine Kinase 67 U/L (29-168) 07/16/20 16:33 Troponin I 0.014 ng/mL (< 0.028) 07/16/20 19:21 Serum Total Protein 6.3 g/dL (6.0-8.3) 07/18/20 05:16 Albumin 3.5 g/dL (3.4-4.8) 07/18/20 05:16 Lipase 62 U/L (8-78) 07/16/20 13:00 Urine Ketones Negative mg/dL (Negative) 07/16/20 16:15 Urine Blood Negative (Negative) 07/16/20 16:15 Urine Nitrite Negative (Negative) 07/16/20 16:15 Ur Leukocyte Esterase Negative Megan/uL (Negative) 07/16/20 16:15 - Radiology Interpretation CT scan - head Additional Comment: No acute intracranial pathology. PN A/P (1) Syncope Code(s): R55 - SYNCOPE AND COLLAPSE Status: Acute (2) Absence seizure disorder Code(s): G40.A09 - ABSENCE EPILEPTIC SYNDROME, NOT INTRACTABLE, W/O STAT EPI Status: Chronic (3) Atrial fibrillation Code(s): I48.91 - UNSPECIFIED ATRIAL FIBRILLATION Status: Chronic (4) Autonomic dysfunction Code(s): G90.9 - DISORDER OF THE AUTONOMIC NERVOUS SYSTEM, UNSPECIFIED Status: Chronic (5) CAD (coronary artery disease) Code(s): I25.10 - ATHSCL HEART DISEASE OF [place] CORONARY ARTERY W/O ANG PCTRS Status: Chronic (6) CHF (congestive heart failure) Code(s): I50.9 - HEART FAILURE, UNSPECIFIED Status: Chronic (7) GERD (gastroesophageal reflux disease) Code(s): K21.9 - GASTRO-ESOPHAGEAL REFLUX DISEASE WITHOUT ESOPHAGITIS Status: Chronic (8) HLD (hyperlipidemia) Code(s): E78.5 - HYPERLIPIDEMIA, UNSPECIFIED Status: Chronic (9) Anxiety and depression Code(s): F41.9 - ANXIETY DISORDER, UNSPECIFIED; F32.9 - MAJOR DEPRESSIVE DISORDER, SINGLE EPISODE, UNSPECIFIED Status: Chronic (10) COPD (chronic obstructive pulmonary disease) Status: Chronic Qualifiers: COPD type: unspecified COPD Qualified Code(s): J44.9 - Chronic obstructive pulmonary disease, unspecified (11) DM type 2 (diabetes mellitus, type 2) Status: Chronic Qualifiers: Diabetes mellitus intermodal truck driver insulin use: without intermodal truck driver use Diabetes mellitus complication status: with neurologic complications Diabetes mellitus complication detail: with polyneuropathy Qualified Code(s): E11.42 - Type 2 diabetes mellitus with diabetic polyneuropathy (12) HLD (hyperlipidemia) Code(s): E78.5 - HYPERLIPIDEMIA, UNSPECIFIED Status: Chronic Qualifiers: Hyperlipidemia type: unspecified (13) HTN (hypertension) Code(s): I10 - ESSENTIAL (PRIMARY) HYPERTENSION Status: Chronic Qualifiers: Hypertension type: essential hypertension (14) Non-ischemic cardiomyopathy Code(s): I42.9 - CARDIOMYOPATHY, UNSPECIFIED Status: Chronic - Plan Daily Plan: PT/OT, speech therapy, DVT proph w/SCDs Ms. Thornton is a 79-year-old female with history significant for hypertension, hyperlipidemia, atrial fibrillation on Eliquis, syncope, and seizure disorder, presented with an episode of altered mental status. Syncope versus seizure. Head CT reviewed which was negative for acute intracranial pathology CTA of the head and neck did not show hemodynamically significant stenosis. 2D echo showed ejection fraction of 30 to 35%. No thrombus or PFO. Telemetryatrial fibrillation s/p pacemaker. Paced rhythm. Cardiology on board MRI of the brain pending due to pacemaker. Continue Eliquis for secondary stroke prevention and atrial fibrillation. Continue high intensity statin for secondary stroke prevention. Continue home medications. Monitor blood pressure and blood glucose. EEG reviewed which was negative for seizure activity. Based on history of frequent episodes of altered mental status consider increasing the dose of Keppra to 750 mg twice daily. Observe seizure precautions. Ativan 2 mg IV for seizure greater than 2 minutes. Neurochecks every 4 hours. Continue medical management per primary team. DVT prophylaxis GI prophylaxis Plan discussed with the patient and the nursing staff.
[2020-07-18] MEDS: ALPRAZolam 0.25 MG TAB PO PRN ×2 (16:06→20:20)
[2020-07-18] MEDS: Gabapentin 100 MG CAP PO SCH (20:07)
[2020-07-18] MEDS: levETIRAcetam 500 MG TAB PO SCH (20:07)
[2020-07-18] MEDS: Atorvastatin Calcium 20 MG TAB PO SCH (20:07)
[2020-07-18] MEDS: Digoxin 0.125 MG TAB PO SCH (20:07)
--- NOTE | 2020-07-18 21:46 | CON ---
DATE OF CONSULTATION: HISTORY OF PRESENT ILLNESS: Maritza Ward is a 79-year-old white female with history of nonischemic cardiomyopathy, autonomic insufficiency, and orthostatic hypotension, who does have a [employer] biventricular ICD. She has numerous episodes where she seems to lose consciousness for several seconds and this in the past has been attributable to possible absence seizures. Ms. Ward was sitting in a wheelchair when apparently she slumped forward. Usually with her previous episodes, she will respond very quickly. However, with this, she did not. Also it was noted that she had some weakness of her right side and so, EMS was called and she was taken by helicopter to [place]. Upon arrival here, she was found to be hypertensive and placed on a Cardene drip. Her symptoms significantly improved in the emergency room and she was not given tPA. Ms. Ward denies any chest discomfort, shortness of breath, cough, or fever. PAST MEDICAL HISTORY: Nonischemic cardiomyopathy, previously evaluated in the [facility]. She apparently has severe autonomic insufficiency, nonischemic cardiomyopathy with ejection fraction of 30% to 35%, and paroxysmal atrial fibrillation on low-dose Eliquis. MEDICATIONS: 1. Xanax 0.25 b.i.d. p.r.n. 2. Eliquis 2.5 b.i.d. 3. Digoxin 0.125 at bedtime. 4. Neurontin 100 mg at bedtime. 5. Keppra 500 at bedtime. 6. Antivert 25 p.r.n. 7. Metoprolol 12.5 at bedtime. 8. Protonix 40 mg b.i.d. 9. Trulance 3 mg p.r.n. 10. MiraLAX p.r.n. 11. KCl 10 mEq p.r.n. 12. Seroquel 25 mg at bedtime. 13. Entresto 24/26 one tablet daily. 14. Senokot p.r.n. 15. Simvastatin 40 at bedtime. 16. Demadex 5 mg p.r.n. 17. Effexor 150 XR b.i.d. ALLERGIES: VAL INHIBITOR CAUSES COUGH. INTRAVENOUS POTASSIUM CAUSES PROBLEMS FOR HER. OPERATIONS: Appendectomy, cholecystectomy, hysterectomy, and ICD placement. REVIEW OF SYSTEMS: A 10-point review of systems is otherwise unremarkable. PHYSICAL EXAMINATION: VITAL SIGNS: Blood pressure of 140/78 and pulse of 86. HEENT: PERRL. NECK: Supple. CHEST: Clear. CARDIAC: S1 and S2 normal without any S3 or S4. ABDOMEN: Normal bowel sounds without tenderness. The abdomen is obese. EXTREMITIES: Revealed no clubbing, cyanosis, or edema. NEUROLOGIC: Reveals mild right-sided weakness. SKIN: Warm and dry. LABORATORY DATA: EKG reveals AV pacing with what appears to be biventricular pacing. Interrogation of her device reveals she has not had any significant ventricular arrhythmias. She does have episodes of atrial arrhythmias, most of which were very short lived with 4 minutes being the longest, mostly every ones being under [address] angiogram and [facility] angiogram revealed no hemodynamically significant stenosis or occlusion. There is mild aneurysmal dilatation of the ascending aorta. Some perihilar interstitial and airspace opacities. Echocardiogram revealed mild left ventricular enlargement, ejection fraction of 30% to 35%, defibrillator wire in the right side of the heart, mild aortic root dilatation, inferior wall akinesis, diastolic function could not be assessed. The left atrium is mildly dilated. Sodium 141, potassium 3.8, chloride 105, carbon dioxide 27, BUN 13, and creatinine 0.82. Cholesterol 181, triglycerides 144, HDL 42, and LDL 104. Cardiac enzymes were negative x3. Hemoglobin 12.7, hematocrit 38.8, white count 9700, and platelets 271,000. IMPRESSION: 1. Syncopal episode, which may be related to her autonomic dysfunction or to her absence seizure disorder. 2. 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 Her strength has significantly improved, but she is still somewhat weak on the right side. 3. Nonischemic cardiomyopathy with ejection fraction of 30% to 35%, which is stable. 4. Status post biventricular implantable cardioverter-defibrillator placement, seven months left on the device. 5. Paroxysmal atrial fibrillation, on Eliquis, although low-dose. 6. Hypertension. 7. Hypercholesterolemia. 8. Obesity. 9. History of absence seizures. RECOMMENDATIONS: Ms. Ward ICD appears to be functioning well. She has not had any significant arrhythmias. Her episodes of atrial fibrillation were very short lived. Consideration should be given to a possible increase in her Eliquis 5 mg b.i.d. since her age is less than 80, she has normal creatinine and her weight is greater than 60 kg. Her other medications will be continued. Job ID: [id number] MTDD
--- NOTE | 2020-07-19 07:14 | PDOC.HOSPP ---
- Subjective Encounter Date: 07/19/20 Encounter Time: 09:00 Subjective: Patient still feeling dizzy, but much better than yesterday. Will try getting up with PT again. - Objective Vital Signs & Weight: Vital Signs (12 hours) Temp Pulse Resp BP BP Pulse Ox 07/19/20 03:50 97.7 F 83 18 140/77 95 07/18/20 23:50 98.1 F 84 18 135/66 94 L 07/18/20 20:50 98.0 F 83 20 155/74 H 93 L 07/18/20 20:07 81 07/18/20 20:00 94 L Weight Weight 217 lb I&O: 07/18/20 07/19/20 07/20/20 06:59 06:59 06:59 Intake Total 1020 150 Output Total 1000 Balance 20 150 Result Diagrams: 07/18/20 05:16 07/18/20 05:16 Hospitalist ROS - Review of Systems Constitutional: denies: fever, chills Respiratory: denies: cough, shortness of breath Cardiovascular: denies: chest pain, palpitations Gastrointestinal: denies: nausea, vomiting, abdominal pain Neurological: reports: other (dizziness) - Medication Medications: Active Medications Generic Name Dose Route Start Last Admin Trade Name Freq PRN Reason Stop Dose Admin Acetaminophen 650 mg 07/16/20 16:08 07/18/20 09:48 Acetaminophen 325 Mg Tab PO 650 mg Q4H PRN Administration Headache/Fever/Mild Pain (1-3) Alprazolam 0.25 mg 07/16/20 18:29 07/18/20 20:20 Alprazolam 0.25 Mg Tab PO 0.25 mg BIDPRN PRN Administration Anxiety Apixaban 2.5 mg 07/16/20 21:00 07/18/20 20:07 Apixaban 2.5 Mg Tab PO 2.5 mg BID LENORA Administration Aspirin 81 mg 07/17/20 09:00 07/18/20 10:26 Aspirin 81 Mg Enteric Coated Tablet PO 81 mg DAILY LENORA Administration Atorvastatin Calcium 20 mg 07/16/20 21:00 07/18/20 20:07 Atorvastatin Calcium 20 Mg Tab PO 20 mg HS LENORA Administration Digoxin 0.125 mg 07/16/20 21:00 07/18/20 20:07 Digoxin 0.125 Mg Tab PO 0.125 mg HS LENORA Administration Gabapentin 100 mg 07/17/20 21:00 07/18/20 20:07 Gabapentin 100 Mg Cap PO 100 mg HS LENORA Administration Levetiracetam 500 mg 07/16/20 21:00 07/18/20 20:07 Levetiracetam 500 Mg Tab PO 500 mg HS LENORA Administration Metoprolol Succinate 12.5 mg 07/16/20 21:00 07/18/20 20:07 Metoprolol Succinate Xl 25 Mg Tab PO 12.5 mg HS LENORA Administration Pantoprazole Sodium 40 mg 07/17/20 07:30 07/18/20 16:06 Pantoprazole 40 Mg Tab PO 40 mg BID-AC LENORA Administration Quetiapine Fumarate 25 mg 07/17/20 21:00 07/18/20 20:07 Quetiapine Fumarate 25 Mg Tab PO 25 mg HS LENORA Administration Sacubitril/Valsartan 1 tab 07/17/20 09:00 07/18/20 10:26 Sacubitril 24mg/Valsartan 26mg Tab PO 1 tab DAILY LENORA Administration Venlafaxine HCl 150 mg 07/18/20 09:00 07/18/20 20:07 Venlafaxine Hcl Xr 150 Mg Cap PO 150 mg BID LENORA Administration - Exam General Appearance: NAD, awake alert ENT: moist mucosa Heart: RRR, no murmur, no gallops, no rubs Respiratory: CTAB, no wheezes, no rales, no ronchi Gastrointestinal: soft, non-tender, non-distended, normal bowel sounds Extremities: no edema Psychiatric: normal affect, normal behavior Hosp A/P (1) Syncope Code(s): R55 - SYNCOPE AND COLLAPSE Status: Acute (2) Absence seizure disorder Code(s): G40.A09 - ABSENCE EPILEPTIC SYNDROME, NOT INTRACTABLE, W/O STAT EPI Status: Chronic (3) Atrial fibrillation Code(s): I48.91 - UNSPECIFIED ATRIAL FIBRILLATION Status: Chronic (4) Autonomic dysfunction Code(s): G90.9 - DISORDER OF THE AUTONOMIC NERVOUS SYSTEM, UNSPECIFIED Status: Chronic (5) CAD (coronary artery disease) Code(s): I25.10 - ATHSCL HEART DISEASE OF [place] CORONARY ARTERY W/O ANG PCTRS Status: Chronic (6) CHF (congestive heart failure) Code(s): I50.9 - HEART FAILURE, UNSPECIFIED Status: Chronic (7) GERD (gastroesophageal reflux disease) Code(s): K21.9 - GASTRO-ESOPHAGEAL REFLUX DISEASE WITHOUT ESOPHAGITIS Status: Chronic (8) HLD (hyperlipidemia) Code(s): E78.5 - HYPERLIPIDEMIA, UNSPECIFIED Status: Chronic (9) HTN (hypertension) Code(s): I10 - ESSENTIAL (PRIMARY) HYPERTENSION Status: Chronic (10) COPD (chronic obstructive pulmonary disease) Status: Chronic Qualifiers: COPD type: unspecified COPD Qualified Code(s): J44.9 - Chronic obstructive pulmonary disease, unspecified (11) DM type 2 (diabetes mellitus, type 2) Status: Chronic Qualifiers: Diabetes mellitus usp insulin use: without usp use Diabetes mellitus complication status: with neurologic complications Diabetes mellitus complication detail: with polyneuropathy Qualified Code(s): E11.42 - Type 2 diabetes mellitus with diabetic polyneuropathy - Plan 79F admitted for syncope/absence seizure; with a hx of absence seizures, CAD, CHF, autonomic dysfunction. She was admitted to the Stroke unit and has gotten neuro consult and echo and EEG and stroke team evaluation. Also cardiology consulted. #Syncope vs Seizures Right lower extremity drift Continue ASA Echo- EF 30-35%; MRI Pending- perhaps not able to get due to pacemaker Neuro checks Stroke team evaluation Restart home meds including Keppra, dose increased to 750mg BID by neurology EEG has been done- no seizure activity MRI pending #Acute CVA Patient with some residual right sided weakness Dr. Haji considering increasing Eliquis to full dose #History of absence seizures Neuro consult Restarted Keppra Seizure precautions #Autonomic dysfunction Has hx of orthostatic hypotension #Atrial Fib AV paced On monitor while on Stroke #Hx of HTN, HLD, GERD, CHF, CAD Restarted home meds - BP still high so may need to increase Digoxin level low Cardiology consulted, appreciate Dr. Haji's assistance. Considering increasing to full dose Eliquis ECHO with depressed EF Full Code SCDs for DVT prophlaxis, Eliquis Protonix for GI proplaxis
[2020-07-19] MEDS: Aspirin 81 mg Enteric Coated Tablet PO SCH (08:37)
[2020-07-19] MEDS: Venlafaxine HCl XR 150 MG CAP PO SCH ×2 (08:37→21:27)
[2020-07-19] MEDS: Apixaban 2.5 MG TAB PO SCH ×2 (08:37→21:26)
--- NOTE | 2020-07-19 18:10 | CT ---
CT BRAIN NONCONTRAST: DATE: 07/19/2020 HISTORY: 79-year-old female with TIA: Right-sided weakness, blurred vision, and dizziness FINDINGS: There is no evidence of acute intra-axial or extra-axial hemorrhage. There is no midline shift or any other mass effect. There is no extra-axial fluid collection. There is no evidence of obstructive hydrocephalus. Calvarium is intact. There is diffuse brain parenchymal volume loss. There are low att enuation areas in the white matter. These are nonspecific, but in a patient of this age, they are probably chronic ischemic white matter changes due to microvascular atherosclerosis. IMPRESSION: 1) No acute intracranial findings. 2) involutional changes and chronic ischemic white matter changes.
[2020-07-19] MEDS: Digoxin 0.125 MG TAB PO SCH (21:26)
[2020-07-19] MEDS: Atorvastatin Calcium 20 MG TAB PO SCH (21:26)
[2020-07-19] MEDS: Gabapentin 100 MG CAP PO SCH (21:26)
[2020-07-19] MEDS: levETIRAcetam 500 MG TAB PO SCH (21:27)
[2020-07-19] MEDS: ALPRAZolam 0.25 MG TAB PO PRN (21:27)
[2020-07-20] MEDS: Acetaminophen 325 MG TAB PO PRN (09:14)
[2020-07-20] MEDS: Venlafaxine HCl XR 150 MG CAP PO SCH ×2 (09:15→21:21)
[2020-07-20] MEDS: Apixaban 5 MG TAB PO SCH ×2 (10:21→21:21)
--- NOTE | 2020-07-20 12:03 | PDOC.NEUPN ---
- Subjective Encounter Date: 07/20/20 Subjective: Patient awake and follows commands appropriately. She does complain of change in vision since admission to the hospital yesterday evening. Stat head CT was done which was negative for acute intracranial pathology - Objective Vital Signs & Weight: Vital Signs (12 hours) Temp Pulse Pulse Resp BP BP BP 07/20/20 11:33 98 F 82 16 136/77 07/20/20 08:55 93 121/70 132/86 07/20/20 08:00 07/20/20 07:52 97.8 F 84 18 168/79 H 07/20/20 04:00 97.9 F 83 16 137/65 Pulse Ox 07/20/20 11:33 95 07/20/20 08:55 07/20/20 08:00 95 07/20/20 07:52 95 07/20/20 04:00 94 L Weight Weight 217 lb I&O: 07/19/20 07/20/20 07/21/20 06:59 06:59 06:59 Intake Total 150 275 240 Output Total 1000 Balance 150 -725 240 Result Diagrams: 07/18/20 05:16 07/18/20 05:16 Radiology Reviewed by me: Yes EKG Reviewed by me: Yes ROS - Review of Systems Constitutional: denies: fever, chills, sweats, weakness, malaise, other Eyes: denies: pain, vision change, conjunctivae inflammation, eyelid inflammation, redness, other ENT: denies: ear pain, ear discharge, nose pain, nose discharge, nose congestion, mouth pain, mouth swelling, throat pain, throat swelling, other Cardiovascular: reports: AFIB, CHF, HTN, Syncope, Hyperlipidemia Gastrointestinal: denies: nausea, vomiting, abdominal pain, diarrhea, constipation, melena, hematochezia, other Genitourinary: denies: dysuria, frequency, incontinence, hematuria, retention, other All Systems: All other systems reviewed; all pertinent +/- noted in HPI/Subj - Medication Medications: Active Medications Generic Name Dose Route Start Last Admin Trade Name Freq PRN Reason Stop Dose Admin Acetaminophen 650 mg 07/16/20 16:08 07/20/20 09:14 Acetaminophen 325 Mg Tab PO 650 mg Q4H PRN Administration Headache/Fever/Mild Pain (1-3) Alprazolam 0.25 mg 07/16/20 18:29 07/19/20 21:27 Alprazolam 0.25 Mg Tab PO 0.25 mg BIDPRN PRN Administration Anxiety Apixaban 5 mg 07/20/20 09:00 07/20/20 10:21 Apixaban 5 Mg Tab PO 5 mg BID LENORA Administration Atorvastatin Calcium 20 mg 07/16/20 21:00 07/19/20 21:26 Atorvastatin Calcium 20 Mg Tab PO 20 mg HS LENORA Administration Digoxin 0.125 mg 07/16/20 21:00 07/19/20 21:26 Digoxin 0.125 Mg Tab PO 0.125 mg HS LENOAR Administration Gabapentin 100 mg 07/17/20 21:00 07/19/20 21:26 Gabapentin 100 Mg Cap PO 100 mg HS LENORA Administration Levetiracetam 500 mg 07/16/20 21:00 07/19/20 21:27 Levetiracetam 500 Mg Tab PO 500 mg HS LENORA Administration Metoprolol Succinate 12.5 mg 07/16/20 21:00 07/19/20 21:26 Metoprolol Succinate Xl 25 Mg Tab PO 12.5 mg HS LENORA Administration Pantoprazole Sodium 40 mg 07/17/20 07:30 07/20/20 09:15 Pantoprazole 40 Mg Tab PO 40 mg BID-AC LENORA Administration Quetiapine Fumarate 25 mg 07/17/20 21:00 07/19/20 21:27 Quetiapine Fumarate 25 Mg Tab PO 25 mg HS LENORA Administration Sacubitril/Valsartan 1 tab 07/17/20 09:00 07/20/20 09:15 Sacubitril 24mg/Valsartan 26mg Tab PO 1 tab DAILY LENORA Administration Venlafaxine HCl 150 mg 07/18/20 09:00 07/20/20 09:15 Venlafaxine Hcl Xr 150 Mg Cap PO 150 mg BID LENORA Administration - Exam General Appearance: awake alert Eye: PERRL ENT: normocephalic atraumatic Neck: supple Respiratory: CTAB Cardiovascular: RRR Gastrointestinal: soft Extremities: no cyanosis Skin: normal turgor Neurological: no new deficit Musculoskeletal: normal tone, no muscle wasting PSYCH: normal affect, normal behavior, A&O x 3 Results - Labs Result Diagrams: 07/18/20 05:16 07/18/20 05:16 Lab results: WBC 9.7 thou/uL (4.8-10.8) 07/18/20 05:16 Hgb 12.7 g/dL (12.0-16.0) 07/18/20 05:16 Hct 38.8 % (36.0-47.0) 07/18/20 05:16 MCV 94.2 fL (78.0-98.0) 07/18/20 05:16 Plt Count 271 thou/uL (130-400) 07/18/20 05:16 Neutrophils % 50.6 % (42.0-75.0) 07/18/20 05:16 Sodium 141 mmol/L (136-145) 07/18/20 05:16 Potassium 3.8 mmol/L (3.5-5.1) 07/18/20 05:16 Chloride 105 mmol/L (98-107) 07/18/20 05:16 Carbon Dioxide 27 mmol/L (23-31) 07/18/20 05:16 BUN 13 mg/dL (9.8-20.1) 07/18/20 05:16 Creatinine 0.82 mg/dL (0.6-1.1) 07/18/20 05:16 Glucose 116 mg/dL (83-110) H 07/18/20 05:16 Calcium 8.9 mg/dL (7.8-10.44) 07/18/20 05:16 Total Bilirubin 0.3 mg/dL (0.2-1.2) 07/18/20 05:16 AST 15 U/L (5-34) 07/18/20 05:16 ALT 11 U/L (8-55) 07/18/20 05:16 Alkaline Phosphatase 75 U/L (40-110) 07/18/20 05:16 Creatine Kinase 67 U/L (29-168) 07/16/20 16:33 Troponin I 0.014 ng/mL (< 0.028) 07/16/20 19:21 Serum Total Protein 6.3 g/dL (6.0-8.3) 07/18/20 05:16 Albumin 3.5 g/dL (3.4-4.8) 07/18/20 05:16 Lipase 62 U/L (8-78) 07/16/20 13:00 Urine Ketones Negative mg/dL (Negative) 07/16/20 16:15 Urine Blood Negative (Negative) 07/16/20 16:15 Urine Nitrite Negative (Negative) 07/16/20 16:15 Ur Leukocyte Esterase Negative Megan/uL (Negative) 07/16/20 16:15 - Radiology Interpretation CT scan - head Additional Comment: No acute intracranial pathology. PN A/P (1) Syncope Code(s): R55 - SYNCOPE AND COLLAPSE Status: Acute (2) Absence seizure disorder Code(s): G40.A09 - ABSENCE EPILEPTIC SYNDROME, NOT INTRACTABLE, W/O STAT EPI Status: Chronic (3) Atrial fibrillation Code(s): I48.91 - UNSPECIFIED ATRIAL FIBRILLATION Status: Chronic (4) Autonomic dysfunction Code(s): G90.9 - DISORDER OF THE AUTONOMIC NERVOUS SYSTEM, UNSPECIFIED Status: Chronic (5) CAD (coronary artery disease) Code(s): I25.10 - ATHSCL HEART DISEASE OF [place] CORONARY ARTERY W/O ANG PCTRS Status: Chronic (6) CHF (congestive heart failure) Code(s): I50.9 - HEART FAILURE, UNSPECIFIED Status: Chronic (7) GERD (gastroesophageal reflux disease) Code(s): K21.9 - GASTRO-ESOPHAGEAL REFLUX DISEASE WITHOUT ESOPHAGITIS Status: Chronic (8) HLD (hyperlipidemia) Code(s): E78.5 - HYPERLIPIDEMIA, UNSPECIFIED Status: Chronic (9) Anxiety and depression Code(s): F41.9 - ANXIETY DISORDER, UNSPECIFIED; F32.9 - MAJOR DEPRESSIVE DISORDER, SINGLE EPISODE, UNSPECIFIED Status: Chronic (10) COPD (chronic obstructive pulmonary disease) Status: Chronic Qualifiers: COPD type: unspecified COPD Qualified Code(s): J44.9 - Chronic obstructive pulmonary disease, unspecified (11) DM type 2 (diabetes mellitus, type 2) Status: Chronic Qualifiers: Diabetes mellitus penitentiary insulin use: without penitentiary use Diabetes mellitus complication status: with neurologic complications Diabetes mellitus complication detail: with polyneuropathy Qualified Code(s): E11.42 - Type 2 diabetes mellitus with diabetic polyneuropathy (12) HLD (hyperlipidemia) Code(s): E78.5 - HYPERLIPIDEMIA, UNSPECIFIED Status: Chronic Qualifiers: Hyperlipidemia type: unspecified (13) HTN (hypertension) Code(s): I10 - ESSENTIAL (PRIMARY) HYPERTENSION Status: Chronic Qualifiers: Hypertension type: essential hypertension (14) Non-ischemic cardiomyopathy Code(s): I42.9 - CARDIOMYOPATHY, UNSPECIFIED Status: Chronic - Plan Daily Plan: PT/OT, speech therapy, DVT proph w/SCDs Ms. Thornton is a 79-year-old female with history significant for hypertension, hyperlipidemia, atrial fibrillation on Eliquis, syncope, and seizure disorder, presented with an episode of altered mental status and persistent dizziness Complain of acute onset blurred visionstat head CT negative for acute intrac ranial pathology or bleed. Consider ophthalmology input. Repeat Head CT post 48 hours after symptom onset reviewed which was negative for acute intracranial pathology. CTA of the head and neck did not show hemodynamically significant stenosis. 2D echo showed ejection fraction of 30 to 35%. No thrombus or PFO. Telemetryatrial fibrillation s/p pacemaker. Paced rhythm. Cardiology on board Cardiology recommended increasing dose of Eliquis. MRI of the brain pending due to pacemaker on request of the daughter per nursing staff. However, head CT post 48 hours after symptom onset is negative and repeating MRI imaging will not change of address clerk. Continue Eliquis for secondary stroke prevention and atrial fibrillation. Continue high intensity statin for secondary stroke prevention. Continue home medications. Monitor blood pressure and blood glucose. EEG reviewed which was negative for seizure activity. Based on history of frequent episodes of altered mental status dose of Keppra increased to 750 mg twice daily she is tolerating well. Observe seizure precautions. Ativan 2 mg IV for seizure greater than 2 minutes. Neurochecks every 4 hours. Continue medical management per primary team. DVT prophylaxis GI prophylaxis Plan discussed with the patient and the nursing staff.
--- NOTE | 2020-07-20 12:03 | PRG ---
DATE OF SERVICE: 07/20/2020 SUBJECTIVE: Ms. Ward is awake and alert. She said she can move all her extremities, but the right side is more difficult to move. No chest pain or pressure. OBJECTIVE: VITAL SIGNS: Blood pressure 168/79, pulse 84. LUNGS: Clear. CARDIAC: Normal S1, normal S2. ABDOMEN: Soft, nontender. There is a question of whether her defibrillator is MRI compatible. ASSESSMENT: 1. Recent transient ischemic attack. 2. History of atrial fibrillation with a very low burden. No significant atrial fibrillation recently. 3. Autonomic insufficiency. 4. History of heart failure. PLAN: Trying to find out whether she is MRI compatible. No medication changes at this time. ADDENDUM: The patient's defibrillator is not compatible with MRI. The generator is MRI compatible but the lead is not. Therefore, MRI is not feasible in this patient. Job ID: [id number]
--- NOTE | 2020-07-20 15:28 | PDOC.HOSPP ---
- Subjective Encounter Date: 07/20/20 Encounter Time: 07:30 Subjective: Patient seen for follow-up regarding syncope. She denies chest pain or shortness of breath. - Objective Vital Signs & Weight: Vital Signs (12 hours) Temp Pulse Pulse Resp BP BP BP 07/20/20 11:33 98 F 82 16 136/77 07/20/20 08:55 93 121/70 132/86 07/20/20 08:00 07/20/20 07:52 97.8 F 84 18 168/79 H 07/20/20 04:00 97.9 F 83 16 137/65 Pulse Ox 07/20/20 11:33 95 07/20/20 08:55 07/20/20 08:00 95 07/20/20 07:52 95 07/20/20 04:00 94 L Weight Weight 217 lb I&O: 07/19/20 07/20/20 07/21/20 06:59 06:59 06:59 Intake Total 150 275 240 Output Total 1000 Balance 150 -725 240 Result Diagrams: 07/18/20 05:16 07/18/20 05:16 Additional Labs: I reviewed patient's labs and MAR EKG Reviewed by me: Yes (V paced rhythm on telemetry) Hospitalist ROS - Review of Systems Respiratory: denies: cough, shortness of breath, SOB with excertion, pleuritic pain, wheezing Cardiovascular: denies: chest pain, palpitations, orthopnea, paroxysmal noc. dyspnea, edema, light headedness (Vision changes) Neurological: reports: other - Medication Medications: Active Medications Generic Name Dose Route Start Last Admin Trade Name Joseq PRN Reason Stop Dose Admin Acetaminophen 650 mg 07/16/20 16:08 07/20/20 09:14 Acetaminophen 325 Mg Tab PO 650 mg Q4H PRN Administration Headache/Fever/Mild Pain (1-3) Alprazolam 0.25 mg 07/16/20 18:29 07/19/20 21:27 Alprazolam 0.25 Mg Tab PO 0.25 mg BIDPRN PRN Administration Anxiety Apixaban 5 mg 07/20/20 09:00 07/20/20 10:21 Apixaban 5 Mg Tab PO 5 mg BID LENORA Administration Atorvastatin Calcium 20 mg 07/16/20 21:00 07/19/20 21:26 Atorvastatin Calcium 20 Mg Tab PO 20 mg HS LENORA Administration Digoxin 0.125 mg 07/16/20 21:00 07/19/20 21:26 Digoxin 0.125 Mg Tab PO 0.125 mg HS LENORA Administration Gabapentin 100 mg 07/17/20 21:00 07/19/20 21:26 Gabapentin 100 Mg Cap PO 100 mg HS LENORA Administration Levetiracetam 500 mg 07/16/20 21:00 07/19/20 21:27 Levetiracetam 500 Mg Tab PO 500 mg HS LENORA Administration Metoprolol Succinate 12.5 mg 07/16/20 21:00 07/19/20 21:26 Metoprolol Succinate Xl 25 Mg Tab PO 12.5 mg HS LENORA Administration Pantoprazole Sodium 40 mg 07/17/20 07:30 07/20/20 09:15 Pantoprazole 40 Mg Tab PO 40 mg BID-AC LENORA Administration Quetiapine Fumarate 25 mg 07/17/20 21:00 07/19/20 21:27 Quetiapine Fumarate 25 Mg Tab PO 25 mg HS LENORA Administration Sacubitril/Valsartan 1 tab 07/17/20 09:00 07/20/20 09:15 Sacubitril 24mg/Valsartan 26mg Tab PO 1 tab DAILY LENORA Administration Venlafaxine HCl 150 mg 07/18/20 09:00 07/20/20 09:15 Venlafaxine Hcl Xr 150 Mg Cap PO 150 mg BID LENORA Administration - Exam General Appearance: awake alert General - other findings: Obese Eye: anicteric sclera ENT: no oropharyngeal lesions Neck: supple Heart: RRR Respiratory: CTAB Gastrointestinal: soft, non-tender Extremities: no cyanosis Skin: no rashes Psychiatric: normal affect, normal behavior Hosp A/P - Plan -Assessment (1) Syncope Code(s): R55 - SYNCOPE AND COLLAPSE Status: Acute (2) Absence seizure disorder Code(s): G40.A09 - ABSENCE EPILEPTIC SYNDROME, NOT INTRACTABLE, W/O STAT EPI Status: Chronic (3) Autonomic dysfunction Code(s): G90.9 - DISORDER OF THE AUTONOMIC NERVOUS SYSTEM, UNSPECIFIED Status: Chronic (4) Atrial fibrillation Code(s): I48.91 - UNSPECIFIED ATRIAL FIBRILLATION Status: Chronic (5) CHF (congestive heart failure) Code(s): I50.9 - HEART FAILURE, UNSPECIFIED Status: Chronic (6) CAD (coronary artery disease) Code(s): I25.10 - ATHSCL HEART DISEASE OF [place] CORONARY ARTERY W/O ANG PCTRS Status: Chronic (7) GERD (gastroesophageal reflux disease) Code(s): K21.9 - GASTRO-ESOPHAGEAL REFLUX DISEASE WITHOUT ESOPHAGITIS Status: Chronic (8) HTN (hypertension) Code(s): I10 - ESSENTIAL (PRIMARY) HYPERTENSION Status: Chronic (9) HLD (hyperlipidemia) Code(s): E78.5 - HYPERLIPIDEMIA, UNSPECIFIED Status: Chronic (10) COPD (chronic obstructive pulmonary disease) Status: Chronic Qualifiers: COPD type: unspecified COPD Qualified Code(s): J44.9 - Chronic obstructive pulmonary disease, unspecified (11) DM type 2 (diabetes mellitus, type 2) Status: Chronic Qualifiers: Diabetes mellitus custodial insulin use: without exterminator helper termite use Diabetes mellitus complication status: with neurologic complications Diabetes mellitus complication detail: with polyneuropathy Qualified Code(s): E11.42 - Type 2 diabetes mellitus with diabetic polyneuropathy - Plan #Syncope vs Seizures Continue ASA Echo- EF 30-35% MRI Pending Neuro checks Stroke team evaluation Continue Keppra 750 mg 2 times a day No evidence of seizure on telemetry shows normal sinus rhythm. 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
[2020-07-20] MEDS ORDERED: ALPRAZolam 1 MG TAB PO SCH (21:00)
[2020-07-20] MEDS: Atorvastatin Calcium 20 MG TAB PO SCH (21:21)
[2020-07-20] MEDS: levETIRAcetam 500 MG TAB PO SCH (21:21)
[2020-07-20] MEDS: Digoxin 0.125 MG TAB PO SCH (21:21)
[2020-07-20] MEDS: Gabapentin 100 MG CAP PO SCH (21:21)
[2020-07-21] MEDS: Venlafaxine HCl XR 150 MG CAP PO SCH (08:59)
[2020-07-21] MEDS: Apixaban 5 MG TAB PO SCH (08:59)
--- NOTE | 2020-07-21 10:05 | PRG ---
DATE OF SERVICE: 07/21/2020 SUBJECTIVE: Ms. Ward still feels very weak and fatigued and dizzy. OBJECTIVE: VITAL SIGNS: Blood pressure 147/83, pulse 80 and it is paced. LUNGS: Clear. CARDIAC: Normal S1 and normal S2. ABDOMEN: Soft and nontender. We did investigate the defibrillator. The patient does not have an MRI compatible lead. ASSESSMENT: 1. Autonomic insufficiency, stable. 2. History of congestive heart failure, systolic, acute on chronic, appears compensated. Ejection fraction 30% to 35%. 3. Previous defibrillator. 4. EEG was negative for seizures. PLAN: No other recommendations at the present time. Job ID: [id number]
--- NOTE | 2020-07-21 11:37 | PDOC.NEUPN ---
- Subjective Encounter Date: 07/21/20 Subjective: Patient feels better today. Per patient, seen by ophthalmology and was told no intervention from their perspective. Vision improved. - Objective Vital Signs & Weight: Vital Signs (12 hours) Temp Pulse Pulse Pulse Resp BP BP 07/21/20 11:27 98.4 F 85 14 07/21/20 09:27 102 H 84 132/84 137/82 07/21/20 07:24 97.6 F 80 16 07/21/20 03:51 97.5 F L 75 16 BP Pulse Ox 07/21/20 11:27 125/61 93 L 07/21/20 09:27 07/21/20 07:24 147/83 H 94 L 07/21/20 03:51 139/88 97 Weight Weight 217 lb I&O: 07/20/20 07/21/20 07/22/20 06:59 06:59 06:59 Intake Total 275 1155 Output Total 1000 400 Balance -725 755 Result Diagrams: 07/18/20 05:16 07/18/20 05:16 Radiology Reviewed by me: Yes EKG Reviewed by me: Yes ROS - Review of Systems Constitutional: denies: fever, chills, sweats, weakness, malaise, other ENT: denies: ear pain, ear discharge, nose pain, nose discharge, nose congestion, mouth pain, mouth swelling, throat pain, throat swelling, other Musculoskeletal: denies: neck pain, shoulder pain, arm pain, back pain, hand pain, leg pain, foot pain, other Neurological: reports: weakness, incoordination, confusion, seizures All Systems: All other systems reviewed; all pertinent +/- noted in HPI/Subj - Medication Medications: Active Medications Generic Name Dose Route Start Last Admin Trade Name Freq PRN Reason Stop Dose Admin Acetaminophen 650 mg 07/16/20 16:08 07/20/20 09:14 Acetaminophen 325 Mg Tab PO 650 mg Q4H PRN Administration Headache/Fever/Mild Pain (1-3) Alprazolam 1 mg 07/20/20 21:00 07/20/20 21:22 Alprazolam 1 Mg Tab PO 1 mg HS LENORA Administration Apixaban 5 mg 07/20/20 09:00 07/21/20 08:59 Apixaban 5 Mg Tab PO 5 mg BID LENORA Administration Atorvastatin Calcium 20 mg 07/16/20 21:00 07/20/20 21:21 Atorvastatin Calcium 20 Mg Tab PO 20 mg HS LENORA Administration Bisacodyl 10 mg 07/16/20 16:08 07/20/20 15:53 Bisacodyl 5 Mg Tab PO 10 mg DAILYPRN PRN Administration Constipation Digoxin 0.125 mg 07/16/20 21:00 07/20/20 21:21 Digoxin 0.125 Mg Tab PO 0.125 mg HS LENORA Administration Gabapentin 100 mg 07/17/20 21:00 07/20/20 21:21 Gabapentin 100 Mg Cap PO 100 mg HS LENORA Administration Levetiracetam 500 mg 07/16/20 21:00 07/20/20 21:21 Levetiracetam 500 Mg Tab PO 500 mg HS LENORA Administration Pantoprazole Sodium 40 mg 07/17/20 07:30 07/21/20 08:59 Pantoprazole 40 Mg Tab PO 40 mg BID-AC LENORA Administration Quetiapine Fumarate 25 mg 07/17/20 21:00 07/20/20 21:21 Quetiapine Fumarate 25 Mg Tab PO 25 mg HS LENORA Administration Sacubitril/Valsartan 1 tab 07/17/20 09:00 07/21/20 08:59 Sacubitril 24mg/Valsartan 26mg Tab PO 1 tab DAILY LENORA Administration Sodium Chloride 10 ml 07/16/20 16:03 07/21/20 08:59 Flush - Normal Saline 10 Ml Syringe IVF 10 ml PRN PRN Administration Saline Flush Venlafaxine HCl 150 mg 07/18/20 09:00 07/21/20 08:59 Venlafaxine Hcl Xr 150 Mg Cap PO 150 mg BID LENORA Administration - Exam General Appearance: awake alert Eye: PERRL ENT: normocephalic atraumatic Neck: supple Respiratory: CTAB Cardiovascular: RRR Gastrointestinal: soft Extremities: no cyanosis Skin: normal turgor Neurological: no new deficit Musculoskeletal: no muscle wasting PSYCH: normal affect, normal behavior, A&O x 3 Results - Labs Result Diagrams: 07/18/20 05:16 07/18/20 05:16 Lab results: WBC 9.7 thou/uL (4.8-10.8) 07/18/20 05:16 Hgb 12.7 g/dL (12.0-16.0) 07/18/20 05:16 Hct 38.8 % (36.0-47.0) 07/18/20 05:16 MCV 94.2 fL (78.0-98.0) 07/18/20 05:16 Plt Count 271 thou/uL (130-400) 07/18/20 05:16 Neutrophils % 50.6 % (42.0-75.0) 07/18/20 05:16 Sodium 141 mmol/L (136-145) 07/18/20 05:16 Potassium 3.8 mmol/L (3.5-5.1) 07/18/20 05:16 Chloride 105 mmol/L (98-107) 07/18/20 05:16 Carbon Dioxide 27 mmol/L (23-31) 07/18/20 05:16 BUN 13 mg/dL (9.8-20.1) 07/18/20 05:16 Creatinine 0.82 mg/dL (0.6-1.1) 07/18/20 05:16 Glucose 116 mg/dL (83-110) H 07/18/20 05:16 Calcium 8.9 mg/dL (7.8-10.44) 07/18/20 05:16 Total Bilirubin 0.3 mg/dL (0.2-1.2) 07/18/20 05:16 AST 15 U/L (5-34) 07/18/20 05:16 ALT 11 U/L (8-55) 07/18/20 05:16 Alkaline Phosphatase 75 U/L (40-110) 07/18/20 05:16 Creatine Kinase 67 U/L (29-168) 07/16/20 16:33 Troponin I 0.014 ng/mL (< 0.028) 07/16/20 19:21 Serum Total Protein 6.3 g/dL (6.0-8.3) 07/18/20 05:16 Albumin 3.5 g/dL (3.4-4.8) 07/18/20 05:16 Lipase 62 U/L (8-78) 07/16/20 13:00 Urine Ketones Negative mg/dL (Negative) 07/16/20 16:15 Urine Blood Negative (Negative) 07/16/20 16:15 Urine Nitrite Negative (Negative) 07/16/20 16:15 Ur Leukocyte Esterase Negative Megan/uL (Negative) 07/16/20 16:15 - Radiology Interpretation CT scan - head Additional Comment: No acute intracranial pathology. PN A/P (1) Syncope Code(s): R55 - SYNCOPE AND COLLAPSE Status: Acute (2) Absence seizure disorder Code(s): G40.A09 - ABSENCE EPILEPTIC SYNDROME, NOT INTRACTABLE, W/O STAT EPI Status: Chronic (3) Atrial fibrillation Code(s): I48.91 - UNSPECIFIED ATRIAL FIBRILLATION Status: Chronic (4) Autonomic dysfunction Code(s): G90.9 - DISORDER OF THE AUTONOMIC NERVOUS SYSTEM, UNSPECIFIED Status: Chronic (5) CAD (coronary artery disease) Code(s): I25.10 - ATHSCL HEART DISEASE OF [place] CORONARY ARTERY W/O ANG PCTRS Status: Chronic (6) CHF (congestive heart failure) Code(s): I50.9 - HEART FAILURE, UNSPECIFIED Status: Chronic (7) GERD (gastroesophageal reflux disease) Code(s): K21.9 - GASTRO-ESOPHAGEAL REFLUX DISEASE WITHOUT ESOPHAGITIS Status: Chronic (8) HLD (hyperlipidemia) Code(s): E78.5 - HYPERLIPIDEMIA, UNSPECIFIED Status: Chronic (9) Anxiety and depression Code(s): F41.9 - ANXIETY DISORDER, UNSPECIFIED; F32.9 - MAJOR DEPRESSIVE DISORDER, SINGLE EPISODE, UNSPECIFIED Status: Chronic (10) COPD (chronic obstructive pulmonary disease) Status: Chronic Qualifiers: COPD type: unspecified COPD Qualified Code(s): J44.9 - Chronic obstructive pulmonary disease, unspecified (11) DM type 2 (diabetes mellitus, type 2) Status: Chronic Qualifiers: Diabetes mellitus regional intermodal truck driver insulin use: without regional intermodal truck driver use Diabetes mellitus complication status: with neurologic complications Diabetes mellitus complication detail: with polyneuropathy Qualified Code(s): E11.42 - Type 2 diabetes mellitus with diabetic polyneuropathy (12) HLD (hyperlipidemia) Code(s): E78.5 - HYPERLIPIDEMIA, UNSPECIFIED Status: Chronic Qualifiers: Hyperlipidemia type: unspecified (13) HTN (hypertension) Code(s): I10 - ESSENTIAL (PRIMARY) HYPERTENSION Status: Chronic Qualifiers: Hypertension type: essential hypertension (14) Non-ischemic cardiomyopathy Code(s): I42.9 - CARDIOMYOPATHY, UNSPECIFIED Status: Chronic - Plan Daily Plan: PT/OT, DVT proph w/lovenox Ms. Norberto is a 79-year-old female with history significant for hypertension, hyperlipidemia, atrial fibrillation on Eliquis, syncope, and seizure disorder, presented with an episode of altered mental status and persistent dizziness Complain of acute onset blurred vision 2 days ago stat head CT negative for acute intracranial pathology or bleed. Seen by ophthalmology input. Awaiting recommendations. Vision improved today Repeat Head CT post 48 hours after symptom onset reviewed which was negative for acute intracranial pathology or bleed. CTA of the head and neck did not show hemodynamically significant stenosis. 2D echo showed ejection fraction of 30 to 35%. No thrombus or PFO. Telemetryatrial fibrillation s/p pacemaker. Paced rhythm. Cardiology on board Cardiology recommended increasing dose of Eliquis. MRI of the brain pending due to pacemaker on request of the daughter per nursing staff. Per cardiology, pacemaker is not compatible with MRI Continue increased dose of Eliquis recommended by cardiology for depressed LVEF , atrial fibrillation and also for secondary stroke prevention Continue high intensity statin for secondary stroke prevention. Continue home medications. Strict control blood pressure and blood glucose. EEG reviewed which was negative for seizure activity. Based on history of frequent episodes of altered mental status dose of Keppra increased to 750 mg twice daily which she is tolerating well. Patient was made aware that Keppra has no interactions with her other medications. Observe seizure precautions. Ativan 2 mg IV for seizure greater than 2 minutes. Neurochecks every 4 hours. Continue medical management per primary team. DVT prophylaxis GI prophylaxis Plan discussed with the patient and the nursing staff.
[2020-07-21 14:48] VITALS: TEMP 98.1
--- NOTE | 2020-07-21 15:33 | PDOC.DS.DS ---
Provider - Provider Date of Admission: 07/16/20 15:18 Date of Discharge: 07/21/20 Admitting Provider: Kev Glasgow MD Consultations: Cardiology (Dr. Haji), Neurology (Dr. Naylor) Primary Care Physician: Cesilia San MD Course - Hospital Course Hospital Course: Discharge diagnosis: 1. Syncope 2. Absence seizure disorder 3. Vision changes 4. Autonomic insufficiency, stable 5. Acute metabolic encephalopathy Hospital course: Patient is a pleasant 73-year-old lady who was admitted to the hospital on July 16, 2020 following a syncopal episode and concern for absence seizure disorder. She was seen by cardiology and neurology services. 2D echocardiogram showed mildly increased left ventricular size, left ventricular ejection fraction of 30 to 35%, normal right ventricular size and function, pacer wire visualized in the right ventricle, normal size left atrium, structurally normal aortic valve with no significant stenosis or regurgitation, mild dilatation of the aortic root, inferior wall appeared akinetic, diastolic function could not be assessed. Left atrium was mildly dilated. Electroencephalogram was c onsistent with mild generalized nonspecific cerebral dysfunction. Patient continued to improve clinically. However, on July 19 she complained of vision changes. Repeat noncontrast CT scan of the brain did not show any acute intracranial finding. She was seen by ophthalmology service and after bedside exam there would like to follow-up with her in clinic as outpatient. Arrangements are being made for home health prior to discharge. Her Keppra dose has been increased to 500 mg 2 times a day. Her Entresto dose has been changed to twice daily, from once daily dosing. Her Toprol-XL dose was increased to 25 mg daily. Her apixaban dose has been increased to 5 mg 2 times a day. Otherwi se, no change was made to her preadmission home medications. She has been advised to check her blood pressure and heart rate 3 times a day and shows readings to her primary care provider. Resuscitation Status: 07/16/20 16:08 Resuscitation Status Routine Co-Sign Provider: Resuscitation Status: FULL: Full Resuscitation Discussed with: patient - Labs Lab Results: 07/18/20 05:16 07/18/20 05:16 - Physical Exam Vitals: Vital Signs (12 hours) Temp Pulse Pulse Pulse Resp BP BP 07/21/20 14:47 98.1 F 82 12 07/21/20 11:27 98.4 F 85 14 07/21/20 09:27 102 H 84 132/84 137/82 07/21/20 07:24 97.6 F 80 16 07/21/20 03:51 97.5 F L 75 16 BP Pulse Ox 07/21/20 14:47 92 L 07/21/20 11:27 125/61 93 L 07/21/20 09:27 07/21/20 07:24 147/83 H 94 L 07/21/20 03:51 139/88 97 Weight Weight 217 lb Physical Exam: The patient was seen and examined on the day of discharge. Patient denies chest pain or shortness of breath. Vital signs are stable. S1 and S2 are heard. Lungs are clear to auscultation bilaterally. Problem - Time spent with Patient (mins): 31 Plan - Discharge Medications Prescriptions: Apixaban [Eliquis] 5 mg PO BID #60 tab Sacubitril/Valsartan [Entresto 24 mg-26 mg Tablet] 1 tab PO BID #60 tab levETIRAcetam [Keppra] 500 mg PO BID #60 tab Metoprolol Succinate [Toprol XL] 25 mg PO HS #30 tab Home Medications: Medication Instructions Recorded Confirmed Type Digoxin [Lanoxin] 125 mcg PO HS #30 tab 10/01/19 07/16/20 Rx Simvastatin [Zocor] 40 mg PO HS #30 tablet 10/01/19 07/16/20 Rx Venlafaxine HCl [Effexor XR] 150 mg PO BID #30 cap 10/01/19 07/16/20 Rx Pantoprazole [Protonix] 40 mg PO BID-AC 03/23/20 07/16/20 History Plecanatide [Trulance] 3 mg PO DAILY PRN 03/23/20 07/16/20 History Polyethylene Glycol 3350 [Miralax] 17 gm PO DAILY PRN 03/23/20 07/16/20 History Potassium Chloride [Klor-Con 10] 10 meq PO DAILY PRN 03/23/20 07/16/20 History Acetaminophen With Codeine 1 tablet PO Q6HR PRN 04/05/20 07/16/20 History [Tylenol with Codeine #3] QUEtiapine Fumarate [SEROquel] 25 mg PO HS 04/05/20 07/16/20 History Gabapentin [Neurontin] 100 mg PO HS #30 cap 04/22/20 07/16/20 Rx ALPRAZolam [Xanax] 0.5 mg PO BID-RT PRN 07/16/20 07/19/20 History Meclizine HCl [Antivert] 25 mg PO PRN PRN 07/16/20 07/16/20 History Sennosides/Docusate Sodium 2 tab PO BIDPRN PRN 07/16/20 07/16/20 History [Senokot S] Torsemide [Demadex] 5 mg PO PRN PRN 07/16/20 07/16/20 History Apixaban [Eliquis] 5 mg PO BID #60 tab 07/21/20 Rx Metoprolol Succinate [Toprol XL] 25 mg PO HS #30 tab 07/21/20 Rx Sacubitril/Valsartan [Entresto 24 1 tab PO BID #60 tab 07/21/20 Rx mg-26 mg Tablet] levETIRAcetam [Keppra] 500 mg PO BID #60 tab 07/21/20 Rx Allergies: hydrocodone bitartrate [From Vicodin] Allergy (Verified 07/16/20 19:24) VAL Inhibitors Adverse Reaction (Verified 07/16/20 19:24) Cough NSAIDS (Non-Steroidal Anti-Inflamma Adverse Reaction (Verified 07/16/20 19:24) Anxiety potassium chloride Adverse Reaction (Verified 07/16/20 19:24) Short of Breath reacts to potassium IV, " feels like passing out even at a low rate", face gets numb. Pt states she CAN take PO potassium - Discharge Instructions Discharge Instructions:: Check your blood pressure and heart rate 3 times a day and show the readings to her primary care provider. Activity:: Activity as Tolerated Nourishment:: Diabetic Diet, Heart Healthy Diet Therapies:: Home Health - Follow up Plan Referrals: [facility] [Outside] Boni Carrion MD [Active] - 10 Days Prabhjot Rankin MD [Active] - 14 Days Cesilia San MD [Primary Care Provider] - 3 Days Gabriel Kruger MD [Active] - 3-4 Weeks Disposition: HOME Quality - Care Measures CORE MEASURES:: N/A
[2020-07-21 15:35] VITALS: BP 157/75
[2020-07-21] MEDS ORDERED: levETIRAcetam 500 MG TAB PO SCH (21:00)
--- NOTE | 2020-07-22 08:27 | CON ---
DATE OF CONSULTATION: 07/21/2020 TIME: 0800 hours. REASON FOR CONSULTATION: Visual disturbance. CHIEF COMPLAINT: The patient states she is not seeing well since her recent event. HISTORY OF PRESENT ILLNESS: The patient is a 79-year-old woman, who has had absence seizures and autonomic dysfunction for the past several months. Her family states she was sitting in her wheelchair and then suddenly and spontaneously slumped forward, became limp, and unresponsive. She was ultimately life-flighted from [place] [facility] to the [facility] Department. During her recent few days, CT of the brain on both and 19 July, showed no acute findings or structural abnormalities. CTA angiogram of the head and neck showed no hemodynamic stenosis, occlusion, or aneurysm. PHYSICAL EXAMINATION: On examination, she is alert, oriented, and fully able to discuss her status. Visual acuity at near with her glasses was 20/800 equivalent with right eye and 20/400 equivalent with her left eye. On motility exam, her eyes are aligned with full range of motion. Pupils are equal and reactive without an afferent pupillary defect. Intra-ocular pressure by Jason-Pen is 14 mmHg in each eye. 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 On dilated fundus exam, the optic nerve heads were flat and of normal color. The retinal vessels were patent. The macula and remaining midperipheral retina were normal without any retinal pigment epithelial changes, edema, or hemorrhages. DIAGNOSTIC DATA: I reviewed her CT exams with Radiology and it confirmed that there was no occipital abnormality in these exams. The patient relates that MRI had been considered, but because of the model and make of her cardiac pacemaker that could not be done. ASSESSMENT: There is possible lower left occipital lobe pathology. She may have had some ischemia of the optic nerves secondary to hypotension during her syncopal spell. PLAN: I have asked her to be seen in my office after discharge, where more formal visual field testing could be done and refraction and further exam can determine if there is a better best corrected vision. Job ID: [id number] [facility]
--- NOTE | 2020-07-23 17:03 | EKG ---
Test Reason : Blood Pressure : / mmHG Vent. Rate : 080 BPM Atrial Rate : 080 BPM P-R Int : 280 ms QRS Dur : 138 ms QT Int : 408 ms P-R-T Axes : 000 026 105 degrees QTc Int : 470 ms AV sequential or dual chamber electronic pacemaker Confirmed by ZAFAR BARRY DO ([id number]), editor magazine CLAYTON HART ([id number]) on 07/23/2020 5:03:07 PM Referred By: Confirmed By:ZAFAR BARRY DO
--- NOTE | 2020-07-25 12:19 | PQF ---
CLINICAL DOCUMENTATION CLARIFICATION FORM: Dear DrJosefina: Kev Sánchez MD Date / Time: 07/25/2020 Please exercise your independent, professional judgment in responding to the clarification form. Clinical indicators are provided on the bottom of this form for your review Please check appropriate box(es) to clarify if the following diagnosis has been ruled in our ruled out: [ ] Ruled in CVA [ ] Continue to treat [ ] Resolved [ x] Ruled out CVA [ ] Improving [ ] Cannot rule out diagnosis [ ] Other diagnosis (Please specify if any) [ ] Unable to determine In addition, please specify: Present on Admission (POA): [ ] Yes [ ] No [ ] Unable to determine Physician Signature: Date/Time: For continuity of documentation, please document condition throughout progress notes and discharge summary. Thank You. To be completed by CDI/Coding staff for physician review: Present Clinical Indicators - Signs / Symptoms / Labs Results and Location in Medical Record [x] AMS, confusion ED provider report on 07/16 [x] Nan Coma Scale - 15 H&P on 07/16 [x] NIHHS Score -13 ED provider report on 07/16 [x] Right sided hemiplegia ED provider report on 07/16 [x] Suspect this is a transient TIA. 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 Consult on 07/18 [x] Acute CVA-Dr. 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
--- NOTE | 2020-08-02 02:23 | PQF ---
CLINICAL DOCUMENTATION CLARIFICATION FORM: Dear : Gonzalo Angulo Date / Time: 08/02/2020 Please exercise your independent, professional judgment in responding to the clarification form. Clinical indicators are provided on the bottom of this form for your review Please check appropriate box(es): to clarify the etiology of presenting symptoms [ ] Presenting symptoms are related to TIA [ x ] Presenting symptoms are related to Seizure [ ] Other diagnosis (Please specify if any) [ ] Unable to determine In addition, please specify: Present on Admission (POA): [x ] Yes [ ] No [ ] Unable to determine Physician Signature: Date/Time: For continuity of documentation, please document condition throughout progress notes and discharge summary. Thank You. To be completed by CDI/Coding staff for physician review: Present Clinical Indicators - Signs / Symptoms / Labs Results and Location in Medical Record [x] Absence seizure disorder-restart home dose of keppra H&P on 07/16 [x] Reports the syncope/seizure episodes have been happening for while Hospitalist PN on 07/17 [x] Syncope episode which may be related to her autonomic dysfunction or to her absence seizure disorder Consult on 07/18 [x] Recent transient ischemic attack Progress notes on 07/20 [x] Admitted to the hospital on following a syncopal episode and concern for absence seizure disorder. Discharge summary on 07/21 [x] EEG was consistent with mild generalized nonspecific cerebral dysfunction Discharge summary on 07/21 [x] Suspect this is transient TIA ED provider report on 07/16 Present Risk Factors Results and Location in Medical Record [x] Atrial fibrillation Consult on 07/18 [x] Aged person 79 yrs H&P on 07/16 Present Treatments Results and Location in Medical Record [x] EEG Neurology procedure note on 07/17 [x] Neuro consult Consult on 07/17 [x] Keppra 500 mg PO Medication on 07/16 [x] Keppra 500 mg PO BID Medication on 07/21 CDS/Form Layer Signature: AAS Phone #: Date/Time: 08/02/2020 This is a permanent part of the [facility]
== END 2020-07-21 17:37 | disposition home health service (06) | DRG 101 ==
LOC: ERS 12:36 → 2SE 15:18
PROVIDERS: ADMIT Internal Medicine; ATTEND Internal Medicine
DX: G40.A09 Absence epileptic syndrome, not intractable, without status epilepticus (principal); G81.91 Hemiplegia, unspecified affecting right dominant side; I50.22 Chronic systolic (congestive) heart failure; I42.8 Other cardiomyopathies; R47.01 Aphasia; R29.810 Facial weakness; I25.10 Atherosclerotic heart disease of native coronary artery without angina pectoris; I11.0 Hypertensive heart disease with heart failure; R29.713 NIHSS score 13; F32.9 Major depressive disorder, single episode, unspecified; G90.9 Disorder of the autonomic nervous system, unspecified; F41.9 Anxiety disorder, unspecified; K21.9 Gastro-esophageal reflux disease without esophagitis; E11.42 Type 2 diabetes mellitus with diabetic polyneuropathy; G47.33 Obstructive sleep apnea (adult) (pediatric); I48.0 Paroxysmal atrial fibrillation; E78.2 Mixed hyperlipidemia; J44.9 Chronic obstructive pulmonary disease, unspecified; Z90.49 Acquired absence of other specified parts of digestive tract; Z90.710 Acquired absence of both cervix and uterus; Z88.6 Allergy status to analgesic agent; Z88.8 Allergy status to other drugs, medicaments and biological substances; Z95.0 Presence of cardiac pacemaker; Z79.899 Other long term (current) drug therapy; Z79.01 Long term (current) use of anticoagulants; Z79.82 Long term (current) use of aspirin; Z98.51 Tubal ligation status
CPT/HCPCS: 36415; 36416; 70450; 70496; 70498; 71045; 80048; 80053; 80061; 80162; 82550; 83690; 83735; 84146; 84443; 84484; 85025; 85610; 85730; 90471; 90662; 93005; 93306; 95712; 95816; 95819; 95957; G0008; J2997; J3475; Q9967